=== PATIENT | male | born 1965 | race Caucasian/White ===

== ENCOUNTER → 2016-09-06 | Outpatient (CLI) | payer OTHER ==
--- NOTE | 2016-09-06 17:13 | PN ---
DATE OF SERVICE: 09/06/2016 This patient is 51 years of age. He was diagnosed having mild obstructive sleep apnea. His sleep study was completed on 06/05/2016, and the patient was diagnosed having mild LEE with an AHI of 14.3, worse during REM sleep. In fact, his disease is predominantly during REM, and his AHI during REM was as high as 57.7 and he was having significant nocturnal oxygen desaturations. Based on that, the patient was placed on CPAP therapy, and today he is coming in for a compliancy check. He has been on the treatment for the past 2 weeks. I do have limited data the past 2 weeks that has shown good compliance. The patient has used his CPAP machine 13 out of 15 days. He achieved CPAP use of more than 4 hours in 12 out of these 15 days. His average CPAP use is 5.5 hours and his leak factor is 70 L/minute. His AHI while on treatment is down to 1.2. The patient, however, tells me that he is having some difficulties with the high pressure and occasional leaks around the mask, which wakes him up from sleep. He wanted me to see if there is any possibility of lowering his CPAP pressure any further. Note that his current CPAP pressure is set at a pressure of 14 cm of water. HIS CURRENT VITALS: BP is 119/85, pulse 80, respiratory rate 16. Temperature is 97.0, saturation 97% on room air. GENERAL APPEARANCE: Calm, comfortable. HEENT: Short neck. Crowding of posterior pharynx. There is no goiter or neck masses. LUNGS: Clear to auscultation. HEART: Sounds are regular rate and rhythm. Normal S1, S2. No S3. No S4. No murmurs. ABDOMEN: Soft, nontender. No organomegaly. EXTREMITIES: No edema. No cyanosis or clubbing. IMPRESSION: 1. Symptomatic obstructive sleep apnea, mild, with a baseline AHI of 14.3, significantly worse during REM sleep. The patient is demonstrating adequate clinical response and compliance with his CPAP machine. He is having some difficulties with the high pressure and mask leaks, and he is looking into any possibility for lowering the pressure. 2. Sleep fragmentation, improved with CPAP therapy. 3. Hypertension. 4. Obesity with a body mass index of 41.9. PLAN: 1. Encourage weight loss. 2. Switch this patient to an Auto CPAP unit with a minimum pressure of 6 and a maximum pressure of 14. This will allow the CPAP machine to deliver lower pressures than the target pressure if needed. 3. Keep the patient on a Simplus full-face mask and look for alternative masks if he continues to have issues with air leak. 4. Maintain adequate sleep hygiene measures. 5. See me back here in the office in 8 weeks' time for another followup and compliancy check.
== END | disposition home or self-care (01) ==
LOC: SLEEP 14:02
PROVIDERS: ATTEND Internal Medicine Critical Care Medicine
DX: G47.33 Obstructive sleep apnea (adult) (pediatric) (principal); E66.9 Obesity, unspecified; Z68.41 Body mass index [BMI] 40.0-44.9, adult; Z99.89 Dependence on other enabling machines and devices

== ENCOUNTER → 2016-10-25 | Outpatient (CLI) | payer OTHER ==
--- NOTE | 2016-10-25 22:20 | PN ---
This is a 51-year-old male patient who was diagnosed having obstructive sleep apnea in April 2016. The patient had mild disease with an AHI of 14.3, worse during REM. AHI during REM was 57.7. The patient was placed on CPAP therapy at a pressure of 14 cm of water. During his earlier visit, the patient was having adequate clinical response and compliance; however, he was having some difficulties with the high pressure and leaks around the mask. He was requesting lowering the CPAP pressure. I did not lower the pressure. I will switch this patient to an automatic mode with a minimum pressure of 5, a maximum pressure of 14. On today's evaluation, his P90 pressure is at 7.8. He is using his CPAP for more than 4 hours at 24 out of 30 days. His average CPAP use is 5 hours per night. His leak factor is 10 L per minute and his AHI is down to 0.8. He is still seeing a good benefit from the treatment and the patient has no new complaints for now. BP is 126/66, pulse is 79, respirations 16, temperature 98.0, weight is 279. Height is 5 foot 8 inches. Saturation 96% on room air. BMI is 42.5. GENERAL APPEARANCE: Calm, comfortable. HEENT: Negative for JVD. There is no goiter or neck mass. LUNGS: Clear to auscultation. Heart sounds are regular rate and rhythm. Normal S1, S2. ABDOMEN: Soft, nontender. No organomegaly. EXTREMITIES: No edema. No cyanosis or clubbing. IMPRESSION: 1. Symptomatic obstructive sleep apnea, mild with an apnea-hypopnea index of 14.3, worse during rapid eye movement. 2. Successful continuous positive airway pressure continuous positive airway pressure therapy. 3. Hypertension. 4. Obesity. PLAN: 1. Continue AutoPAP therapy at a minimum pressure of 6 and a maximum of 14 and the treatment has been successful. 2. Encourage weight loss. 3. See me back in a year's time, earlier if needed regarding his obstructive sleep apnea. Treatment is successful for now and the patient is benefiting from the treatment.
== END | disposition home or self-care (01) ==
LOC: SLEEP 13:15
PROVIDERS: ATTEND Internal Medicine Critical Care Medicine
DX: G47.33 Obstructive sleep apnea (adult) (pediatric) (principal); E66.9 Obesity, unspecified; Z68.41 Body mass index [BMI] 40.0-44.9, adult

== ENCOUNTER 2018-05-27 14:55 | Emergency (ER) | payer OTHER ==
[2018-05-27] MEDS ORDERED: ASPIRIN 81 MG PO STA (15:14)
[2018-05-27] MEDS ORDERED: NITROGLYCERIN OINT 1 INCH/GM PACKET TOPICAL STA (15:14)
--- NOTE | 2018-05-27 15:20 | ED ---
General Adult HPI - General Chief complaint: Chest Pain Stated complaint: Chest pain Time Seen by Provider: 05/27/18 15:08 Source: patient, RN notes reviewed Mode of arrival: ambulatory Limitations: no limitations - History of Present Illness Initial comments: Patient is a pleasant 53-year-old male presenting to the emergency Department with chest discomfort. Symptoms are somewhat chronic, worse since last night. Discomfort is somewhat sharp or towards the right side and does radiate towards right arm. Patient does have some associated dyspnea but has resolved. Patient was sweaty earlier. Patient has been under increased stress recently. Patient does have a history of hypertension however is not on any medications secondary to lack of insurance. Discomfort is currently rated 2/10. - Related Data Home Medications Medication Instructions Recorded Confirmed Acetaminophen Tab [Tylenol Tab] 975 mg PO Q4H PRN 05/27/18 05/27/18 Previous Rx's Medication Instructions Recorded Atenolol 25 mg PO DAILY #7 tablet 05/27/18 Allergies Allergy/AdvReac Type Severity Reaction Status Date / Time No Known Allergies Allergy Verified 05/27/18 15:15 Review of Systems ROS Statement: Those systems with pertinent positive or pertinent negative responses have been documented in the HPI. ROS Other: All systems not noted in ROS Statement are negative. Constitutional: Denies: fever Eyes: Denies: eye pain ENT: Denies: ear pain Respiratory: Reports: dyspnea. Denies: cough Cardiovascular: Reports: chest pain Endocrine: Denies: fatigue Gastrointestinal: Denies: abdominal pain Genitourinary: Denies: dysuria Musculoskeletal: Denies: back pain Skin: Denies: rash Neurological: Denies: headache Psychiatric: Reports: anxiety Past Medical History Past Medical History: Hypertension Additional Past Medical History / Comment(s): CHRONIC BRONCHITIS, STATES TESTING SCHEDULED FOR SLEEP APNEA, HX OF KIDNEY STONE., BLOOD IN STOOL. History of Any Multi-Drug Resistant Organisms: None Reported Past Surgical History: Appendectomy, Tonsillectomy Additional Past Surgical History / Comment(s): KIDNEY STONE REMOVED. Past Anesthesia/Blood Transfusion Reactions: No Reported Reaction Past Psychological History: Depression Smoking Status: Never smoker Past Alcohol Use History: None Reported Past Drug Use History: None Reported - Past Family History Mother Family Medical History: Deep Vein Thrombosis (DVT) General Exam Limitations: no limitations General appearance: alert, in no apparent distress Head exam: Present: atraumatic Eye exam: Present: normal appearance ENT exam: Present: normal oropharynx Neck exam: Present: normal inspection Respiratory exam: Present: normal lung sounds bilaterally. Absent: chest wall tenderness Cardiovascular Exam: Present: regular rate, normal rhythm Expanded Peripheral pulses: 2+: Radial (R), Radial (L), Posterior Tibialis (R), Posterior Tibialis (L) GI/Abdominal exam: Present: soft. Absent: tenderness Extremities exam: Present: normal inspection. Absent: pedal edema, calf tenderness Neurological exam: Present: alert Psychiatric exam: Present: normal affect, normal mood Skin exam: Present: normal color Course Vital Signs 05/27/18 05/27/18 05/27/18 14:58 15:07 15:10 Temperature 98.4 F Pulse Rate 112 H 101 H Respiratory 16 18 Rate Blood Pressure 180/120 189/111 O2 Sat by Pulse 95 94 L 96 Oximetry 05/27/18 05/27/18 05/27/18 15:20 15:30 15:40 Temperature Pulse Rate 104 H 98 Respiratory 18 18 Rate Blood Pressure 190/125 190/125 190/125 O2 Sat by Pulse 92 L 94 L Oximetry 05/27/18 05/27/18 15:50 16:00 Temperature Pulse Rate 95 94 Respiratory 18 Rate Blood Pressure 190/125 190/125 O2 Sat by Pulse 95 93 L Oximetry EKG Findings - EKG Comments: EKG Findings:: Sinus tachycardia 106. MI 176. QRS 104. QT 368. QTC 488. Left axis. Incomplete right bundle-branch block. LVH criteria. Nonspecific T waves. Medical Decision Making - Medical Decision Making Patient reevaluated and resting comfortably in bed. Patient states symptoms have resolved. Blood pressure remained somewhat elevated. Patient is updated regarding concerns for symptoms and continued elevated blood pressure. Patient is advised to stay in the hospital for further evaluation and treatment. Patient is made aware of limitations of tests in the emergency department. Patient is made aware that heart attack and other cause of symptoms has not been ruled out at this time. Patient is also made aware that he could be at risk for heart attack in the very near future. Patient refuses to stay secondary to no insurance at this time. Patient does demonstrate medical decision making. Family is present. Patient will leave AGAINST MEDICAL ADVICE. Patient is agreeable to follow-up. Patient will be provided prescription secondary to high blood pressure and recommended close follow-up. - Lab Data Result diagrams: 05/27/18 15:26 05/27/18 15:26 Lab Results 05/27/18 05/27/18 05/27/18 Range/Units 15:26 15:26 15:26 WBC 11.3 H (3.8-10.6) k/uL RBC 4.91 (4.30-5.90) m/uL Hgb 14.6 (13.0-17.5) gm/dL Hct 42.9 (39.0-53.0) % MCV 87.4 (80.0-100.0) fL MCH 29.7 (25.0-35.0) pg MCHC 34.0 (31.0-37.0) g/dL RDW 12.6 (11.5-15.5) % Plt Count 286 (150-450) k/uL Neutrophils % 72 % Lymphocytes % 17 % Monocytes % 7 % Eosinophils % 2 % Basophils % 0 % Neutrophils # 8.1 H (1.3-7.7) k/uL Lymphocytes # 1.9 (1.0-4.8) k/uL Monocytes # 0.8 (0-1.0) k/uL Eosinophils # 0.2 (0-0.7) k/uL Basophils # 0.0 (0-0.2) k/uL PT (9.0-12.0) sec INR (<1.2) APTT (22.0-30.0) sec D-Dimer (<0.60) mg/L FEU Sodium 139 (137-145) mmol/L Potassium 3.7 (3.5-5.1) mmol/L Chloride 103 (98-107) mmol/L Carbon Dioxide 27 (22-30) mmol/L Anion Gap 9 mmol/L BUN 22 H (9-20) mg/dL Creatinine 1.32 H (0.66-1.25) mg/dL Est GFR (CKD-EPI)AfAm 72 (>60 ml/min/1.73 sqM) Est GFR (CKD-EPI)NonAf 62 (>60 ml/min/1.73 sqM) Glucose 121 H (74-99) mg/dL Calcium 9.5 (8.4-10.2) mg/dL Magnesium 2.2 (1.6-2.3) mg/dL Total Bilirubin 0.7 (0.2-1.3) mg/dL AST 33 (17-59) U/L ALT 48 (21-72) U/L Alkaline Phosphatase 93 (38-126) U/L Total Creatine Kinase 210 H (55-170) U/L CK-MB (CK-2) 0.9 (0.0-2.4) ng/mL CK-MB (CK-2) Rel Index 0.4 Troponin I <0.012 (0.000-0.034) ng/mL Total Protein 7.1 (6.3-8.2) g/dL Albumin 4.3 (3.5-5.0) g/dL 05/27/18 Range/Units 15:26 WBC (3.8-10.6) k/uL RBC (4.30-5.90) m/uL Hgb (13.0-17.5) gm/dL Hct (39.0-53.0) % MCV (80.0-100.0) fL MCH (25.0-35.0) pg MCHC (31.0-37.0) g/dL RDW (11.5-15.5) % Plt Count (150-450) k/uL Neutrophils % % Lymphocytes % % Monocytes % % Eosinophils % % Basophils % % Neutrophils # (1.3-7.7) k/uL Lymphocytes # (1.0-4.8) k/uL Monocytes # (0-1.0) k/uL Eosinophils # (0-0.7) k/uL Basophils # (0-0.2) k/uL PT 9.9 (9.0-12.0) sec INR 0.9 (<1.2) APTT 23.2 (22.0-30.0) sec D-Dimer 0.42 (<0.60) mg/L FEU Sodium (137-145) mmol/L Potassium (3.5-5.1) mmol/L Chloride (98-107) mmol/L Carbon Dioxide (22-30) mmol/L Anion Gap mmol/L BUN (9-20) mg/dL Creatinine (0.66-1.25) mg/dL Est GFR (CKD-EPI)AfAm (>60 ml/min/1.73 sqM) Est GFR (CKD-EPI)NonAf (>60 ml/min/1.73 sqM) Glucose (74-99) mg/dL Calcium (8.4-10.2) mg/dL Magnesium (1.6-2.3) mg/dL Total Bilirubin (0.2-1.3) mg/dL AST (17-59) U/L ALT (21-72) U/L Alkaline Phosphatase (38-126) U/L Total Creatine Kinase (55-170) U/L CK-MB (CK-2) (0.0-2.4) ng/mL CK-MB (CK-2) Rel Index Troponin I (0.000-0.034) ng/mL Total Protein (6.3-8.2) g/dL Albumin (3.5-5.0) g/dL - Radiology Data Radiology results: image reviewed (Chest x-ray shows no acute process) Disposition Clinical Impression: Chest pain, Hypertension Disposition: Left Against Medical Advice Instructions: Chest Pain (ED), Hypertension (ED) Additional Instructions: Please follow-up with primary care physician and cardiology in the next day or 2 for recheck. Return to emergency department for desire for further evaluation , increased pain, worsening symptoms, uncontrolled blood pressure, difficulty breathing, or other concerns. Aspirin daily until further advised by primary care physician or associate material handler. You are leaving AGAINST MEDICAL ADVICE. Prescriptions: Atenolol 25 mg PO DAILY #7 tablet Is patient prescribed a controlled substance at d/c from ED?: No Referrals: Jadyn Keene DO [Primary Care Provider] - 1-2 days Time of Disposition: 16:17
[2018-05-27 15:35] LABS: Basophils % (A) 0 %; Eosinophils # (A) 0.2 k/uL (0-0.7); Eosinophils % (A) 2 %; HCT 42.9 % (39.0-53.0); HGB 14.6 gm/dL (13.0-17.5); Lymphocytes # (A) 1.9 k/uL (1.0-4.8); Lymphocytes % (A) 17 %; MCH 29.7 pg (25.0-35.0); MCV 87.4 fL (80.0-100.0); Mean Platelet Volume 7.1; Monocytes # (A) 0.8 k/uL (0-1.0); Monocytes % (A) 7 %; Neutrophils # (A) 8.1 k/uL (1.3-7.7); Neutrophils % (A) 72 %; Platelet Count 286 k/uL (150-450); RBC 4.91 m/uL (4.30-5.90); RDW 12.6 % (11.5-15.5); WBC 11.3 k/uL (3.8-10.6)
[2018-05-27 15:45] LABS: Albumin 4.3 g/dL (3.5-5.0); Calcium 9.5 mg/dL (8.4-10.2); Magnesium 2.2 mg/dL (1.6-2.3); Potassium 3.7 mmol/L (3.5-5.1); Total Bilirubin 0.7 mg/dL (0.2-1.3); Total Protein 7.1 g/dL (6.3-8.2)
--- NOTE | 2018-05-27 15:46 | XR ---
EXAMINATION TYPE: XR chest 2V DATE OF EXAM: 05/27/2018 COMPARISON: NONE HISTORY: Dysrhythmia. Chest pain TECHNIQUE: Frontal and lateral views of the chest are obtained. FINDINGS: Heart and mediastinum are normal. Lungs are clear. Diaphragm is normal. There are chest le ads. Bony thorax is intact. IMPRESSION: Normal chest. No change.
[2018-05-27 15:48] LABS: Creatine Kinase 210 U/L (55-170)
[2018-05-27 16:00] LABS: D-Dimer 0.42 mg/L FEU (<0.60); INR 0.9 (<1.2); Partial Thromboplastin Time 23.2 sec (22.0-30.0); Prothrombin Time 9.9 sec (9.0-12.0)
[2018-05-27 16:01] LABS: Creatine Kinase MB 0.9 ng/mL (0.0-2.4); Troponin I <0.012 ng/mL (0.000-0.034)
[2018-05-27 16:03] VITALS: PULSE 94
[2018-05-27] MEDS ORDERED: ATENOLOL 25 MG TAB PO STA (16:13)
[2018-05-27 16:53] VITALS: BP 145/92; RESP 16; TEMP 98.2
== END 2018-05-27 16:55 | disposition left against medical advice (07) ==
LOC: EC 14:55
DX: I10 Essential (primary) hypertension (principal); R07.89 Other chest pain
CPT/HCPCS: 36415; 71046; 80053; 82550; 82553; 83735; 84484; 85025; 85379; 85610; 85730; 93005; 99285

== ENCOUNTER 2021-01-03 10:08 | Inpatient (IN) | payer OTHER ==
[2021-01-03] MEDS ORDERED: ASPIRIN 81 MG PO STA (10:21)
[2021-01-03 10:32] LABS: Basophils % (A) 0 %; Eosinophils # (A) 0.2 k/uL (0-0.7); Eosinophils % (A) 2 %; HCT 43.9 % (39.0-53.0); HGB 15.7 gm/dL (13.0-17.5); Lymphocytes # (A) 1.8 k/uL (1.0-4.8); Lymphocytes % (A) 19 %; MCH 31.3 pg (25.0-35.0); MCHC 35.7 g/dL (31.0-37.0); MCV 87.6 fL (80.0-100.0); Mean Platelet Volume 7.2; Monocytes # (A) 0.8 k/uL (0-1.0); Monocytes % (A) 8 %; Neutrophils # (A) 6.8 k/uL (1.3-7.7); Neutrophils % (A) 69 %; Platelet Count 247 k/uL (150-450); RBC 5.01 m/uL (4.30-5.90); RDW 11.9 % (11.5-15.5); WBC 9.8 k/uL (3.8-10.6)
--- NOTE | 2021-01-03 10:34 | ED ---
Chest Pain HPI - General Chief Complaint: Chest Pain Stated Complaint: Chest Pain Time Seen by Provider: 01/03/21 10:17 Source: patient, RN notes reviewed Mode of arrival: wheelchair Limitations: no limitations - History of Present Illness Initial Comments: 55-year-old male presents to the emergency Department with chief complaint chest pain. Patient states has been ongoing since , progressively worsening. He feels short of breath feels it's heart is racing. He was recently diagnosed as a type II diabetic started on metformin. Patient has no prior cardiac disease other hypertension. Patient denies any fevers or chills denies a cough or cold like symptoms. - Related Data Home Medications Medication Instructions Recorded Confirmed Gabapentin [Neurontin] 100 mg PO HS 01/03/21 01/03/21 Lisinopril-Hctz 20-25 mg 1 tab PO DAILY 01/03/21 01/03/21 [Zestoretic 20-25] Metoprolol Tartrate [Lopressor] 100 mg PO DAILY 01/03/21 01/03/21 Montelukast [Singulair] 10 mg PO HS 01/03/21 01/03/21 Omeprazole 20 mg PO DAILY 01/03/21 01/03/21 Pantoprazole Sodium [Protonix] 40 mg PO DAILY 01/03/21 01/03/21 Potassium Chloride ER [K-Dur 10] 10 meq PO DAILY 01/03/21 01/03/21 Tamsulosin [Flomax] 0.4 mg PO BID 01/03/21 01/03/21 amLODIPine [Norvasc] 10 mg PO DAILY 01/03/21 01/03/21 buPROPion HCL [Wellbutrin SR] 150 mg PO Q12H 01/03/21 01/03/21 metFORMIN HCL [Glucophage] 500 mg PO BID 01/03/21 01/03/21 Allergies Allergy/AdvReac Type Severity Reaction Status Date / Time No Known Allergies Allergy Verified 01/03/21 11:18 Review of Systems ROS Statement: Those systems with pertinent positive or pertinent negative responses have been documented in the HPI. ROS Other: All systems not noted in ROS Statement are negative. EKG Findings - EKG Comments: EKG Findings:: EKG upon at 10:16 sinus tachycardia rate of 128 AK 156 QRS 94 QT/QTC 320/452 Past Medical History Past Medical History: Hypertension Additional Past Medical History / Comment(s): CHRONIC BRONCHITIS, STATES TESTING SCHEDULED FOR SLEEP APNEA, HX OF KIDNEY STONE., BLOOD IN STOOL. History of Any Multi-Drug Resistant Organisms: None Reported Past Surgical History: Appendectomy, Tonsillectomy Additional Past Surgical History / Comment(s): KIDNEY STONE REMOVED. Past Anesthesia/Blood Transfusion Reactions: No Reported Reaction Past Psychological History: Depression Smoking Status: Never smoker Past Alcohol Use History: None Reported Past Drug Use History: None Reported - Past Family History Mother Family Medical History: Deep Vein Thrombosis (DVT) General Exam Limitations: no limitations General appearance: alert, in no apparent distress Head exam: Present: atraumatic, normocephalic, normal inspection Eye exam: Present: normal appearance, PERRL, EOMI. Absent: scleral icterus, conjunctival injection, periorbital swelling ENT exam: Present: normal exam, normal oropharynx, mucous membranes moist Neck exam: Present: normal inspection, full ROM. Absent: tenderness, meningismus, lymphadenopathy Respiratory exam: Present: normal lung sounds bilaterally. Absent: respiratory distress, wheezes, rales, rhonchi, stridor Cardiovascular Exam: Present: normal rhythm, tachycardia, normal heart sounds. Absent: systolic murmur, diastolic murmur, rubs, gallop, clicks GI/Abdominal exam: Present: soft, normal bowel sounds. Absent: distended, tenderness, guarding, rebound, rigid Course Vital Signs 01/03/21 01/03/21 10:09 11:06 Temperature 98.4 F Pulse Rate 137 H 110 H Respiratory 18 22 Rate Blood Pressure 122/76 130/83 O2 Sat by Pulse 96 95 Oximetry [facility] Patient's workup is negative this time. Patient be admitted for cardiac rule out. Disposition Clinical Impression: Chest pain Disposition: ADMITTED IP TO THIS [facility] Referrals: Jadyn Keene DO [Primary Care Provider] - 1-2 days
[2021-01-03 10:45] LABS: ALT 27 U/L (4-49); AST 25 U/L (17-59); African American GFR (CKD) >90 (>60 ml/min/1.73 sqM); Albumin 3.6 g/dL (3.5-5.0); Alkaline Phosphatase 104 U/L (38-126); Anion Gap 7 mmol/L; Blood Urea Nitrogen 9 mg/dL (9-20); Calcium 8.8 mg/dL (8.4-10.2); Carbon Dioxide 26 mmol/L (22-30); Chloride 102 mmol/L (98-107); Glucose 236 mg/dL (74-99); Lipase 48 U/L (23-300); Magnesium 1.7 mg/dL (1.6-2.3); Non-African American GFR(CKD) >90 (>60 ml/min/1.73 sqM); Potassium 3.4 mmol/L (3.5-5.1); Sodium 135 mmol/L (137-145); Total Bilirubin 0.7 mg/dL (0.2-1.3); Total Protein 5.8 g/dL (6.3-8.2)
--- NOTE | 2021-01-03 10:49 | XR ---
EXAMINATION TYPE: XR chest 2V DATE OF EXAM: 01/03/2021 COMPARISON: 05/27/2018 INDICATION: Chest pain TECHNIQUE: Frontal and lateral views of the chest are obtained. FINDINGS: The heart size is normal. The pulmonary vasculature is normal. The lungs are clear. IMPRESSION: 1. No acute pulmonary process.
[2021-01-03 11:01] LABS: D-Dimer 0.32 mg/L FEU (<0.60); INR 0.9 (<1.2); Partial Thromboplastin Time 22.1 sec (22.0-30.0); Prothrombin Time 10.1 sec (9.0-12.0)
[2021-01-03] MEDS ORDERED: HEPARIN SODIUM 1,000 UN/ML (10ML VL) IV ONE (11:58)
[2021-01-03] MEDS ORDERED: NITROGLYCERIN SL TABS 0.4 MG TAB SUBLINGUAL PRN (11:58)
[2021-01-03] MEDS ORDERED: HEPARIN SOD,PORK IN 0.45% NACL 25,000 UNIT in 0.45% NACL 1 250ML.BAG IV SCH (12:00)
[2021-01-03] MEDS: buPROPion SR 150 MG TABLET.ER PO SCH (12:14)
[2021-01-03] MEDS ORDERED: TEMAZEPAM 15 MG CAP PO PRN (15:54)
[2021-01-03] MEDS ORDERED: ALPRAZolam 0.25 MG TAB PO PRN (15:54)
[2021-01-03 17:07] LABS: Glucose,Whole Blood 211 mg/dL (75-99)
--- NOTE | 2021-01-03 18:45 | HP ---
HISTORY AND PHYSICAL I am covering for Dr. Keene. DATE OF SERVICE: 01/03/2021 CHIEF COMPLAINT: Chest pain. This is a 55-year-old gentleman with a past medical history of diabetes, hypertension, history of chronic bronchitis being followed Dr. Keene in the outpatient setting, had a stress test about 2 years ago. 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 The patient is admitted with complaints of a feeling of heart racing and feeling of some chest fullness and the patient came to [facility] and was admitted for evaluation and treatment. There is no history of fever, rigors, chills. The patient's also reported that sometimes when the patient is working, the patient almost get almost like a presyncopal episode with ashen kurtz coloration, which recovers after some rest. There is no history of fever, rigors, chills at this time. PAST MEDICAL HISTORY: History of diabetes, hypertension, history of chronic bronchitis. MEDICATIONS: Home medications Glucophage, Wellbutrin, Norvasc, Flomax, K-Dur, Protonix, ( ), Singulair, Lopressor, Zestoretic, Neurontin. ALLERGIES: None. FAMILY HISTORY: History of DVT in the family. History of coronary artery disease currently in mother, in the 50s. SOCIAL HISTORY: No history of smoking. No history of alcohol. No history of drug abuse. REVIEW OF SYSTEMS: ENT: No diminished vision. CARDIOVASCULAR: As mentioned earlier. GI: As mentioned. : No dysuria. NERVOUS SYSTEM: No numbness, weakness. ALLERGY: None. HEMATOLOGY/ONCOLOGY: Negative. ENDOCRINE: No history of diabetes or hypothyroidism. CONSTITUTIONAL: As mentioned earlier. DERMATOLOGY: Negative. RHEUMATOLOGY: Negative, PSYCHIATRY: As mentioned earlier. PHYSICAL EXAMINATION: Alert, oriented x3. Pulse 98, blood pressure 101/62, respirations 16, temperature 98.2, pulse ox 98% on 3 L. HEENT: Conjunctivae normal. NECK: No JVD. CARDIAC: Murmur. RESPIRATION: Breath sounds diminished at the bases. No rhonchi. No crackles. ABDOMEN: Soft, obese, nontender. No mass palpable . LEGS: No edema, no swelling. NERVOUS SYSTEM: Higher functions as mentioned earlier. Moves all 4 limbs. No focal motor or sensory deficits. LYMPH NODES: No lymph nodes. SKIN: No rash. JOINTS: No active deforming arthropathy. LABS: CBC within normal limits. Sodium 134, potassium 3.4, and glucose 236. ASSESSMENT: 1. Chest pain for evaluation possible coronary disease. 2. Rule out cardiac arrhythmia. 3. Hyponatremia. 4. Hypokalemia. 5. Sinus tachycardia with some ST-T changes. 6. Diabetes mellitus, type 2. 7. Hypertension. 8. History of chronic bronchitis. 9. Appendectomy. 10.Tonsillectomy. 11.History of nephrolithiasis. 12.Depression. 13.Obesity with body mass of 42.1. RECOMMENDATIONS AND DISCUSSION: This 55-year-old gentleman who presented with multiple medical problems. Monitor the patient closely. Rule out myocardial infarction. The EKG shows sinus tachycardia. We will continue to monitor. Possible stress test versus cardiac cath per Cardiology. We will continue to monitor. Antiplatelet agents, beta blockers. Guarded prognosis. Further recommendations to follow. Dr. Keene will follow tomorrow. MMJODIEL / LILLIANAN: [id number] /
[2021-01-03 20:05] LABS: Glucose,Whole Blood 256 mg/dL (75-99)
[2021-01-03] MEDS: TAMSULOSIN 0.4 MG CAP.ER.24H PO SCH (20:56)
[2021-01-03] MEDS: GABAPENTIN 100 MG CAP PO SCH (20:56)
[2021-01-03] MEDS: MONTELUKAST 10 MG TAB PO SCH (20:56)
[2021-01-03] MEDS: metFORMIN 500 MG TAB PO SCH (20:56)
[2021-01-04] MEDS: buPROPion SR 150 MG TABLET.ER PO SCH ×2 (00:23→11:58)
[2021-01-04] MEDS ORDERED: HEPARIN SODIUM 1,000 UN/ML (10ML VL) IV PRN (02:22)
[2021-01-04] MEDS: metFORMIN 500 MG TAB PO SCH ×2 (07:04→20:30)
[2021-01-04] MEDS: TAMSULOSIN 0.4 MG CAP.ER.24H PO SCH ×2 (07:24→20:30)
[2021-01-04] MEDS: PANTOPRAZOLE 40 MG TABLET PO SCH (07:24)
[2021-01-04] MEDS: POTASSIUM CHLORIDE ER 10 MEQ TAB.ER.PRT PO SCH (07:24)
[2021-01-04] MEDS: LISINOPRIL-HCTZ 20-25 MG 1 EACH TAB PO SCH (07:25)
[2021-01-04 07:28] LABS: Glucose,Whole Blood 202 mg/dL (75-99)
[2021-01-04] MEDS ORDERED: AMINOPHYLLINE 500 MG/20 ML VIAL IV PRN (08:43)
[2021-01-04] MEDS ORDERED: CAFFEINE CITRATE 60 MG/3 ML VIAL IV PRN (08:43)
[2021-01-04] MEDS ORDERED: REGADENOSON 0.4 MG/5 ML SYRINGE IV PRN (08:43)
[2021-01-04] MEDS ORDERED: amLODIPine 10 MG TAB PO SCH (09:00)
[2021-01-04] MEDS ORDERED: METOPROLOL TARTRATE 50 MG TAB PO SCH (09:00)
[2021-01-04] MEDS ORDERED: ASPIRIN 325 MG TAB PO SCH (09:00)
[2021-01-04 09:21] LABS: African American GFR (CKD) >90 (>60 ml/min/1.73 sqM); Anion Gap 2 mmol/L; Blood Urea Nitrogen 11 mg/dL (9-20); Calcium 8.7 mg/dL (8.4-10.2); Carbon Dioxide 33 mmol/L (22-30); Chloride 102 mmol/L (98-107); Glucose 185 mg/dL (74-99); Non-African American GFR(CKD) >90 (>60 ml/min/1.73 sqM); Potassium 3.9 mmol/L (3.5-5.1); Sodium 137 mmol/L (137-145)
--- NOTE | 2021-01-04 09:28 | P.CRDCN ---
History of Present Illness History of present illness: HISTORY OF PRESENTING ILLNESS This is a pleasant 55-year-old male past medical history significant for recently diagnosed diabetes mellitus, hypertension, chronic bronchitis and morbid obesity. He denies prior history of coronary artery disease and does not follow in the office with a draw hand. We have been asked to see in consultation for chest pain. He states for the previous 2 weeks he has been experiencing a discomfort in the left shoulder and left torso. The symptoms were mostly constant with no specific aggravating or alleviating factor. Then on he started experiencing palpitations. He states his heart would begin to race rapidly with no specific exacerbating factor. It would come out of nowhere. It was associated with diaphoresis, dizziness and some vision changes. His chest pain at that time did not worsen. He denies any associated shortness of breath. He was recently started on metformin for newly diagnosed diabetes mellitus. DIAGNOSTICS EKG reveals sinus tachycardia heart rate of [address] abnormalities. 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 Chest xray negative for an acute cardiopulmonary process. Laboratory reviewed, CBC unremarkable, d-dimer 0.32, cardiac enzymes negative 3, sodium 137, potassium 3.9, creatinine 0.61. Current cardiac medications include lisinopril/hydrochlorothiazide 20/25 mg daily, Lopressor 100 mg daily, amlodipine 10 mg daily. Most recent echocardiogram obtained 2016 revealed preserved LV systolic function with ejection fraction 60-65%, mild MR and mild TR noted. Most recent stress test performed in 2016 was a Cardiolite stress test that was negative for stress-induced cardiac ischemia. REVIEW OF SYSTEMS At the time of my exam: CONSTITUTIONAL: Denies fever or chills. CARDIOVASCULAR: Denies chest pain, shortness of breath, orthopnea, PND or palpitations. RESPIRATORY: Denies cough. GASTROINTESTINAL: Denies abdominal pain, diarrhea, constipation, nausea or vomiting. MUSCULOSKELETAL: Denies myalgias. NEUROLOGIC: Denies numbness, tingling, headacbe or weakness. ENDOCRINE: Denies fatigue, weight change, polydipsia or polyurina. GENITOURINARY: Denies burning, hematuria or urgency with micturation. HEMATOLOGIC: Denies history of anemia or bleeding. PHYSICAL EXAMINATION Blood pressure 114/68 heart rate 78 afebrile and maintaining oxygen saturation on nasal cannula. CONSTITUTIONAL: No apparent distress. Obese. HEENT: Head is normocephalic. Pupils are equal, round. Sclerae anicteric. Mucous membranes of the mouth are moist. No JVD. No carotid bruit. CHEST EXAMINATION: Lungs are clear to auscultation. No chest wall tenderness is noted on palpation or with deep breathing. HEART EXAMINATION: Regular rate and rhythm. S1, S2 heard. No murmurs, gallops or rub. ABDOMEN: Soft, nontender. Positive bowel sounds. EXTREMITIES: 2+ peripheral pulses, no lower extremity edema and no calf tenderness. NEUROLOGIC EXAMINATION: Patient is awake, alert and oriented x3. ASSESSMENT Chest pain Palpitations Diabetes mellitus Hypertension Morbid obesity, BMI 42 Chronic lumbar back pain PLAN An acute coronary event has been ruled out. There is no evidence for an acute arrhythmia noted on telemetry tracings. Check TSH. Initiate atorvastatin 40 mg daily secondary to recent diagnosis of diabetes mellitus. Obtain 2-D echocardiogram and Doppler study to assess cardiac structure and function. Perform Lexiscan stress test to assess for stress-induced cardiac ischemia. Discontinue amlodipine and adjust beta sharri to Toprol-XL 200 mg daily rather than short acting. Thank you kindly for this consultation. Nurse Practitioner note has been reviewed, I agree with a documented findings and plan of care. Patient was seen and examined. Past Medical History Past Medical History: Diabetes Mellitus, Hypertension Additional Past Medical History / Comment(s): CHRONIC BRONCHITIS, STATES TESTING SCHEDULED FOR SLEEP APNEA, HX OF KIDNEY STONE., BLOOD IN STOOL. History of Any Multi-Drug Resistant Organisms: None Reported Past Surgical History: Appendectomy, Tonsillectomy Additional Past Surgical History / Comment(s): KIDNEY STONE REMOVED. Past Anesthesia/Blood Transfusion Reactions: No Reported Reaction Past Psychological History: Depression Smoking Status: Never smoker Past Alcohol Use History: None Reported Past Drug Use History: None Reported - Past Family History Mother Family Medical History: Deep Vein Thrombosis (DVT) Medications and Allergies Home Medications Medication Instructions Recorded Confirmed Type Gabapentin [Neurontin] 100 mg PO HS 01/03/21 01/03/21 History Lisinopril-Hctz 20-25 mg 1 tab PO DAILY 01/03/21 01/03/21 History [Zestoretic 20-25] Metoprolol Tartrate [Lopressor] 100 mg PO DAILY 01/03/21 01/03/21 History Montelukast [Singulair] 10 mg PO HS 01/03/21 01/03/21 History Omeprazole 20 mg PO DAILY 01/03/21 01/03/21 History Pantoprazole Sodium [Protonix] 40 mg PO DAILY 01/03/21 01/03/21 History Potassium Chloride ER [K-Dur 10] 10 meq PO DAILY 01/03/21 01/03/21 History Tamsulosin [Flomax] 0.4 mg PO BID 01/03/21 01/03/21 History amLODIPine [Norvasc] 10 mg PO DAILY 01/03/21 01/03/21 History buPROPion HCL [Wellbutrin SR] 150 mg PO Q12H 01/03/21 01/03/21 History metFORMIN HCL [Glucophage] 500 mg PO BID 01/03/21 01/03/21 History Allergies Allergy/AdvReac Type Severity Reaction Status Date / Time No Known Allergies Allergy Verified 01/03/21 11:18 Physical Exam Vitals: Vital Signs Temp Pulse Pulse Resp BP BP Pulse Ox 01/04/21 08:00 78 18 01/04/21 07:00 98.5 F 78 18 114/68 97 01/04/21 01:22 98.0 F 84 14 110/67 96 01/03/21 19:20 98.1 F 102 H 16 110/71 97 01/03/21 15:00 98.3 F 98 16 101/66 98 01/03/21 14:00 98 16 01/03/21 12:28 90 18 142/85 96 01/03/21 12:12 95 20 143/85 96 01/03/21 11:06 110 H 22 130/83 95 01/03/21 10:09 98.4 F 137 H 18 122/76 96 Intake and Output 01/03/21 01/04/21 01/04/21 22:59 06:59 14:59 Intake Total 143.986 Balance 143.986 Intake: Intake, IV Titration 143.986 Amount Heparin Sod,Pork in 0.45% 143.986 NaCl 25,000 unit In 0.45 % NaCl 1 250ml.bag @ 7. 735 UNITS/KG/HR 9.999 mls /hr IV .Q24H [facility] Rx#: [id number] Other: Voiding Method Toilet Toilet Toilet # Voids 1 1 Results 01/03/21 10:24 01/03/21 10:24 Cardiac Enzymes 01/03/21 01/03/21 01/03/21 Range/Units 10:24 10:24 14:16 AST 25 (17-59) U/L Troponin I <0.012 <0.012 (0.000-0.034) ng/mL 01/03/21 Range/Units 19:38 AST (17-59) U/L Troponin I <0.012 (0.000-0.034) ng/mL Coagulation 01/03/21 01/04/21 Range/Units 10:24 01:17 PT 10.1 (9.0-12.0) sec APTT 22.1 22.8 (22.0-30.0) sec CBC 01/03/21 Range/Units 10:24 WBC 9.8 (3.8-10.6) k/uL RBC 5.01 (4.30-5.90) m/uL Hgb 15.7 (13.0-17.5) gm/dL Hct 43.9 (39.0-53.0) % Plt Count 247 (150-450) k/uL Comprehensive Metabolic Panel 01/03/21 Range/Units 10:24 Sodium 135 L (137-145) mmol/L Potassium 3.4 L (3.5-5.1) mmol/L Chloride 102 (98-107) mmol/L Carbon Dioxide 26 (22-30) mmol/L BUN 9 (9-20) mg/dL Creatinine 0.59 L (0.66-1.25) mg/dL Glucose 236 H (74-99) mg/dL Calcium 8.8 (8.4-10.2) mg/dL AST 25 (17-59) U/L ALT 27 (4-49) U/L Alkaline Phosphatase 104 (38-126) U/L Total Protein 5.8 L (6.3-8.2) g/dL Albumin 3.6 (3.5-5.0) g/dL Current Medications Generic Name Dose Route Start Last Admin Trade Name Freq PRN Reason Stop Dose Admin Alprazolam 0.25 mg 01/03/21 15:54 Alprazolam 0.25 Mg Tab PO TID PRN Anxiety Amlodipine Besylate 10 mg 01/04/21 09:00 01/04/21 07:24 Amlodipine 10 Mg Tab PO 10 mg DAILY FREDY Administration Aspirin 325 mg 01/04/21 09:00 01/04/21 07:24 Aspirin 325 Mg Tab PO 325 mg DAILY FREDY Administration Bupropion HCl 150 mg 01/03/21 12:00 01/04/21 00:23 Bupropion Sr 150 Mg Tablet.Er PO 150 mg Q12H FREDY Administration Gabapentin 100 mg 01/03/21 21:00 01/03/21 20:56 Gabapentin 100 Mg Cap PO 100 mg HS FREDY Administration Lisinopril/HCTZ 1 each 01/04/21 09:00 01/04/21 07:25 Lisinopril-Hctz 20-25 Mg 1 Each Tab PO 1 each DAILY FREDY Administration Heparin Sodium (Porcine) 0 unit 01/04/21 02:22 01/04/21 02:35 Heparin Sodium 1,000 Un/Ml (10ml Vl) IV 6,463.7 unit PER PROTOCOL PRN Administration Low PTT Protocol Heparin Sodium/Sodium Chloride 250 mls @ 9.999 mls/hr 01/03/21 12:00 01/04/21 02:34 25,000 unit/ Sodium Chloride IV 10.735 units/kg/hr .Q24H FREDY 13.878 mls/hr Titration Protocol 7.735 UNITS/KG/HR Metformin HCl 500 mg 01/03/21 21:00 01/04/21 07:04 Metformin 500 Mg Tab PO Not Given BID FREDY Metoprolol Tartrate 100 mg 01/04/21 09:00 01/04/21 07:04 Metoprolol Tartrate 50 Mg Tab PO Not Given DAILY FREDY Montelukast Sodium 10 mg 01/03/21 21:00 01/03/21 20:56 Montelukast 10 Mg Tab PO 10 mg HS FREDY Administration Nitroglycerin 0.4 mg 01/03/21 11:58 Nitroglycerin Sl Tabs 0.4 Mg Tab SUBLINGUAL Q5M PRN Chest Pain Pantoprazole Sodium 40 mg 01/04/21 07:30 01/04/21 07:24 Pantoprazole 40 Mg Tablet PO 40 mg DAILY@0730 FREDY Administration Potassium Chloride 10 meq 01/04/21 09:00 01/04/21 07:24 Potassium Chloride Er 10 Meq Tab.Er.Prt PO 10 meq DAILY FREDY Administration Tamsulosin HCl 0.4 mg 01/03/21 21:00 01/04/21 07:24 Tamsulosin 0.4 Mg Cap.Er.24h PO 0.4 mg BID FREDY Administration Temazepam 15 mg 01/03/21 15:54 Temazepam 15 Mg Cap PO HS PRN Insomnia Intake and Output 01/03/21 01/04/21 01/04/21 22:59 06:59 14:59 Intake Total 143.986 Balance 143.986 Intake: Intake, IV Titration 143.986 Amount Heparin Sod,Pork in 0.45% 143.986 NaCl 25,000 unit In 0.45 % NaCl 1 250ml.bag @ 7. 735 UNITS/KG/HR 9.999 mls /hr IV .Q24H [facility] Rx#: [id number] Other: Voiding Method Toilet Toilet Toilet # Voids 1 1 01/03/21 10:24 01/03/21 10:24
[2021-01-04] MEDS: METOPROLOL SUCCINATE (ER) 100 MG TAB.ER.24H PO SCH (10:45)
--- NOTE | 2021-01-04 11:14 | ECHOF ---
Referral Reason:chest pain MEASUREMENTS -------- HEIGHT: 175.3 cm WEIGHT: 129.3 kg BP: 114/68 RVIDd: 4.5 cm (< 3.3) IVSd: 1.5 cm (0.6 - 1.1) LVIDd: 4.9 cm (3.9 - 5.3) LVPWd: 1.2 cm (0.6 - 1.1) IVSs: 1.9 cm LVIDs: 3.3 cm LVPWs: 1.6 cm LAESV Index (A-L): 28.84 ml/m Ao Diam: 4.4 cm (2.0 - 3.7) AV Cusp: 2.4 cm (1.5 - 2.6) LA Diam: 3.3 cm (2.7 - 3.8) MV EXCURSION: 19.784 mm (> 18.000) MV EF SLOPE: 70 mm/s (70 - 150) EPSS: 0.4 cm MV E Gaurav: 1.11 m/s MV DecT: 163 ms MV A Gaurav: 0.81 m/s MV E/A Ratio: 1.37 RAP: 5.00 mmHg RVSP: 28.76 mmHg FINDINGS -------- Sinus rhythm. This was a technically difficult study with suboptimal apical views. The left ventricular size is normal. There is moderate concentric left ventricular hypertrophy. O verall left ventricular systolic function is normal with, an EF between 55 - 60 %. The diastolic fi lling pattern is normal for the age of the patient 15.10. The right ventricle is moderately enlarged. Normal LA size by volume 22+/-6 ml/m2. The right atrial size is normal. 5.0mg of Lumason was utilized for enhancement of images Interatrial and interventricular septum intact. The aortic valve is trileaflet and appears structurally normal. There is no evidence of aortic regu rgitation. There is no evidence of aortic stenosis. There is trace mitral regurgitation. Mild tricuspid regurgitation present. There is no evidence of pulmonary hypertension. The right v entricular systolic pressure, as measured by Doppler, is 28.76mmHg. There is no pulmonic regurgitation present. The aortic root size is normal. IVC Not well visulized. There is no pericardial effusion. CONCLUSIONS -------- 1. The left ventricular size is normal. 2. There is moderate concentric left ventricular hypertrophy. 3. Overall left ventricular systolic function is normal with, an EF between 55 - 60 %. 4. The diastolic filling pattern is normal for the age of the patient 15.10 5. The right ventricle is moderately enlarged. 6. There is trace mitral regurgitation. 7. Mild tricuspid regurgitation present. DIRECTOR OCCUPATIONAL: Marissa Rowe RDCS
[2021-01-04 11:15] LABS: T4, Free (Free Thyroxine) 1.31 ng/dL (0.78-2.19)
[2021-01-04 11:37] LABS: Basophils # (A) 0.03 X 10*3/uL (0.00-0.10); Basophils % (A) 0.4 %; Eosinophils # (A) 0.21 X 10*3/uL (0.04-0.35); Eosinophils % (A) 2.6 %; HCT 40.9 % (39.6-50.0); HGB 13.6 g/dL (13.0-17.0); Lymphocytes % (A) 19.6 %; MCH 30.4 pg (27.0-32.0); MCHC 33.3 g/dL (32.0-37.0); MCV 91.5 fL (80.0-97.0); Mean Platelet Volume 10.8 fL (9.5-12.2); Monocytes # (A) 0.67 X 10*3/uL (0.20-1.00); Monocytes % (A) 8.2 %; Neutrophils % (A) 68.5 %; Platelet Count 233 X 10*3/uL (140-440); RBC 4.47 X 10*6/uL (4.40-5.60); RDW 11.6 % (11.5-14.5); WBC 8.17 X 10*3/uL (4.50-10.00)
[2021-01-04 12:39] LABS: Glucose,Whole Blood 172 mg/dL (75-99)
--- NOTE | 2021-01-04 14:11 | NM ---
EXAMINATION TYPE: NM stress lexiscan cardiolite DATE OF EXAM: 01/04/2021 COMPARISON: 11/26/2015 HISTORY: Chest pain TECHNIQUE: After the intravenous administration of 10.6 mCi Tc 99m Sestamibi - Cardiolite resting SP ECT images acquired 60 minutes post injection. The patient received 0.4mg Lexiscan, 24.3 mCi Tc 99m Sestamibi - Stress images obtained [address] injection FINDINGS: Review of stress and rest SPECT images demonstrates decreased uptake along the inferior and inferolat eral left ventricle on stress and rest images. There is some decreased uptake along the inferolatera l left ventricle greater on stress than on rest images towards the base of the heart. Gated analysis shows normal wall motion with an estimated left ventricular ejection fraction of 51 %. 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
--- NOTE | 2021-01-04 15:33 | P.PN ---
Subjective Progress Note Date: 01/04/21 This is a 55-year-old gentleman admitted with left chest /left-sided chest pressure ,palpitations, heart racing accompanied by shortness of breath ,diaphoresis , blurred vision, and multiple other medical issues. Evaluated by cardiology and is scheduled for Lexiscan stress test today. Telemetry reporting sinus rhythm. Objective - Vital Signs Vital signs: Vital Signs Temp 98.5 F 01/04/21 07:00 Pulse 78 01/04/21 13:59 Resp 18 01/04/21 13:59 BP 114/68 01/04/21 07:00 Pulse Ox 97 01/04/21 07:00 Intake & Output 01/03/21 01/04/21 01/04/21 18:59 06:59 18:59 Intake Total 143.986 Balance 143.986 Weight 129.274 kg 129.27 kg Intake: Intake, IV Titration 143.986 Amount Heparin Sod,Pork in 0.45% 143.986 NaCl 25,000 unit In 0.45 % NaCl 1 250ml.bag @ 7. 735 UNITS/KG/HR 9.999 mls /hr IV .Q24H [facility] Rx#: [id number] Other: Voiding Method Toilet Toilet Toilet # Voids 1 1 2 - Exam PHYSICAL EXAM: VITAL SIGNS: As above GENERAL: Sitting up in bed, no acute distress HEENT: Conjunctivae normal. eyes normal. NECK: No JVD. No thyroid enlargement. No LNs CARDIOVASCULAR: S1, S2 regular.No murmur RESPIRATION: Breath sounds diminished in the bases. No rhonchi or crackles. No bronchial breathing. ABDOMEN: Soft, nontender. No guarding. no masses palpable. No ascites, No hepatosplenomegaly.Bowel sounds heard. LEGS: No edema. no swelling PSYCHIATRY: Alert and oriented X3, mood and affect normal. NERVOUS SYSTEM: Cranial N 2-12 grossly normal. Moves all 4 limbs. No focal deficits.Strength and sensation grossly intact. Skin: Warm and dry, no rash - Labs CBC & Chem 7: 01/04/21 08:39 01/04/21 08:39 Labs: Abnormal Lab Results - Last 24 Hours (Table) 01/03/21 01/03/21 01/04/21 Range/Units 17:06 20:03 07:26 Immature Gran # (0.00-0.04) X 10*3/uL Carbon Dioxide (22-30) mmol/L Creatinine (0.66-1.25) mg/dL Glucose (74-99) mg/dL POC Glucose (mg/dL) 211 H 256 H 202 H (75-99) mg/dL TSH (0.465-4.680) mIU/L 01/04/21 01/04/21 01/04/21 Range/Units 08:39 08:39 12:38 Immature Gran # 0.06 H (0.00-0.04) X 10*3/uL Carbon Dioxide 33 H (22-30) mmol/L Creatinine 0.61 L (0.66-1.25) mg/dL Glucose 185 H (74-99) mg/dL POC Glucose (mg/dL) 172 H (75-99) mg/dL TSH 0.446 L (0.465-4.680) mIU/L Assessment and Plan Assessment: Chest pain, palpitations. Sinus tachycardia with some ST-T changes Diabetes mellitus type 2 Hypertension Hyponatremia, resolved Hypokalemia, resolved Depression Morbid obesity, BMI 42.1 Plan: Continue on current medication regime ,monitoring and symptomatic t reatment. Echo cardiogram pending. Scheduled for Lexiscan stress test. Hemoglobin A1c pending. The impression and plan of care has been dictated as directed. : I performed a history and examination of this patient, discussed the same with the dictator. I agree with the dictator's note ,documented as a scribe. Any additional findings or plans will be noted.
[2021-01-04 16:36] LABS: Hemoglobin A1C 9.2 % (4.0-6.0)
[2021-01-04 17:22] LABS: Glucose,Whole Blood 276 mg/dL (75-99)
[2021-01-04 20:17] LABS: Glucose,Whole Blood 244 mg/dL (75-99)
[2021-01-04] MEDS: GABAPENTIN 100 MG CAP PO SCH (20:29)
[2021-01-04] MEDS: MONTELUKAST 10 MG TAB PO SCH (20:29)
[2021-01-04] MEDS ORDERED: ATORVASTATIN 40 MG TAB PO SCH (21:00)
[2021-01-04] MEDS ORDERED: SODIUM CHLORIDE 0.9% 1,000 ML in EMPTY BAG 1 BAG IV ONE (23:00)
[2021-01-05] MEDS: buPROPion SR 150 MG TABLET.ER PO SCH ×2 (00:33→12:27)
[2021-01-05] MEDS ORDERED: ASPIRIN 325 MG TAB PO ONE (06:00)
[2021-01-05] MEDS ORDERED: HEPARIN SODIUM,PORCINE 10,000 UNIT in SODIUM CHLORIDE 0.9% 1,000 ML IRRIGATION PRN (07:00)
[2021-01-05] MEDS ORDERED: HEPARIN SODIUM,PORCINE 2,500 UNIT in SODIUM CHLORIDE 0.9% 250 ML IRRIGATION PRN (07:00)
[2021-01-05 07:13] LABS: Glucose,Whole Blood 178 mg/dL (75-99)
[2021-01-05] MEDS: metFORMIN 500 MG TAB PO SCH (07:13)
[2021-01-05 07:40] VITALS: TEMP 98.1
[2021-01-05] MEDS: METOPROLOL SUCCINATE (ER) 100 MG TAB.ER.24H PO SCH (07:47)
[2021-01-05] MEDS: PANTOPRAZOLE 40 MG TABLET PO SCH (07:47)
[2021-01-05] MEDS: LISINOPRIL-HCTZ 20-25 MG 1 EACH TAB PO SCH (07:47)
[2021-01-05] MEDS: POTASSIUM CHLORIDE ER 10 MEQ TAB.ER.PRT PO SCH (07:48)
[2021-01-05] MEDS: TAMSULOSIN 0.4 MG CAP.ER.24H PO SCH (07:48)
--- NOTE | 2021-01-05 08:36 | EST ---
EXERCISE STRESS INDICATION: Chest pain and palpitations. AGE: 55 SEX: M HT: 5'" WT: 284 lbs PROTOCOL: Lexiscan STAGE: n/a DURATION OF EXERCISE: n/a HEART RATE REST: 71 BLOOD PRESSURE REST: 117/68 MAXIMUM HEART RATE ACHIEVED: 103 MAXIMUM BLOOD PRESSURE: 119/69 85% MPHR: 142 100% MPHR: 167 METS: n/a RESULTS: Baseline EKG shows sinus rhythm, normal axis, normal intervals. Patient was given intravenous Lexiscan as per protocol. Did not have chest pain or diagnostic ST-segment depression. CONCLUSIONS: 1. Negative stress test by EKG criteria. 2. Cardiolite portion of the stress test will be reported separately. MMODL / IJN: [id number] /
[2021-01-05 10:03] VITALS: BMI 42.0
[2021-01-05 10:11] LABS: Basophils # (A) 0.03 X 10*3/uL (0.00-0.10); Basophils % (A) 0.4 %; Eosinophils # (A) 0.25 X 10*3/uL (0.04-0.35); Eosinophils % (A) 3.2 %; HCT 40.8 % (39.6-50.0); HGB 13.8 g/dL (13.0-17.0); Lymphocytes # (A) 1.39 X 10*3/uL (0.90-5.00); Lymphocytes % (A) 17.5 %; MCH 31.2 pg (27.0-32.0); MCHC 33.8 g/dL (32.0-37.0); MCV 92.3 fL (80.0-97.0); Mean Platelet Volume 10.9 fL (9.5-12.2); Monocytes # (A) 0.65 X 10*3/uL (0.20-1.00); Monocytes % (A) 8.2 %; Neutrophils # (A) 5.56 X 10*3/uL (1.80-7.70); Neutrophils % (A) 70.1 %; Platelet Count 235 X 10*3/uL (140-440); RBC 4.42 X 10*6/uL (4.40-5.60); RDW 11.7 % (11.5-14.5); WBC 7.93 X 10*3/uL (4.50-10.00)
[2021-01-05] MEDS ORDERED: IV FLUID CONTINUATION 1,000 ML IV ONE (10:24)
[2021-01-05] MEDS ORDERED: MIDAZOLAM 2 MG/2 ML VIAL IV ONE (10:40)
[2021-01-05] MEDS ORDERED: fentaNYL (PF) 50 MCG/ML 2 ML AMP IV ONE (10:43)
[2021-01-05] MEDS ORDERED: LIDOCAINE 1% INJ 10MG/ML (20 ML MDV) SQ ONE ×2 (10:46)
[2021-01-05 10:52] VITALS: RESP 12
[2021-01-05] MEDS ORDERED: IOPAMIDOL-370 125ML BTL INJ ONE (10:59)
[2021-01-05] MEDS ORDERED: RX INFO: IV CONTRAST WAS GIVEN 1 EACH MISC MISCELLANE PRN (11:16)
[2021-01-05 11:58] LABS: Glucose,Whole Blood 169 mg/dL (75-99)
--- NOTE | 2021-01-05 12:00 | CC ---
CARDIAC CATHETERIZATION REPORT INDICATION: Chest pain with abnormal stress test showing ischemia in the inferior and inferolateral wall. PROCEDURE NOTE: After obtaining informed consent, left heart catheterization and coronary angiogram were performed via the right femoral artery using standard Ggii catheters. The patient tolerated the procedure well without any obvious immediate complications. He received moderate conscious sedation. Total sedation time was 17 minutes. A femoral angiogram was performed and Angio-Seal was deployed for hemostasis. FINDINGS: HEMODYNAMICS: Left ventricular end-diastolic pressure is 14 mm. There is no significant gradient across the aortic valve. LEFT VENTRICULOGRAM: Not performed. ANGIOGRAPHIC DATA: LEFT MAIN CORONARY ARTERY: Left main coronary artery is a normal-sized vessel and is free of stenosis. Divides into left anterior descending coronary artery and circumflex coronary artery. LEFT ANTERIOR DESCENDING CORONARY ARTERY: LAD and its branches, circumflex coronary artery and its branches are free of significant stenosis. RIGHT CORONARY ARTERY: Right coronary artery is a large dominant vessel and is free of significant disease. CONCLUSIONS: 1. Normal coronary arteries. 2. Normal left ventricular end-diastolic pressures. 3. False-positive stress test. PLAN: I reviewed angiographic data with the patient and advised him on optimal medical therapy and risk factor modification. MMODL / IJN: [id number] /
[2021-01-05 12:01] LABS: Cholesterol 144 mg/dL (0-200); LDL Cholesterol,Calculated 83.4 mg/dL (0.0-131.0)
[2021-01-05 12:26] LABS: African American GFR (CKD) 118.2 (60.0-200.0); Anion Gap 8.4 mmol/L (4.00-12.00); BUN/Creat Ratio 12.5 Ratio (12.00-20.00); Calcium 8.5 mg/dL (8.7-10.3); Carbon Dioxide 25.6 mmol/L (21.6-31.8); Potassium 3.9 mmol/L (3.5-5.5)
[2021-01-05 14:37] VITALS: PULSE 71
[2021-01-05 14:41] VITALS: BP 115/65
--- NOTE | 2021-01-05 15:23 | P.DS ---
Providers Date of admission: 01/05/21 08:57 Expected date of discharge: 01/05/21 Attending physician: Dilshad Keene MD Consults: 01/03/21 11:58 Consult Physician Urgent Consulting Provider: Moreno Castro Consult Reason/Comments: chest pain Do you want consulting provider notified?: Yes Primary care physician: Jadyn Jassi [facility] Course: Final Diagnoses: Chest pain, palpitations. Abnormal Lexiscan stress test reporting ischemia in the inferior and inferior lateral wall, status post cardiac catheterization reporting normal coronary arteries, normal left ventricular end-diastolic pressures, false positive stress test. Sinus tachycardia with some ST-T changes Diabetes mellitus type 2, hemoglobin A1c 9.2-further diabetic education in clinic. Hypertension Hyponatremia, resolved Hypokalemia, resolved Depression Morbid obesity, BMI 42.1 Hospital course:This is a 55-year-old gentleman admitted with left chest /left- sided chest pressure ,palpitations, heart racing accompanied by shortness of breath ,diaphoresis , blurred vision, and multiple other medical issues. Evaluated by cardiology and is scheduled for Lexiscan stress test today. Telemetry reporting sinus rhythm. Echo suboptimal, reporting moderate concentric left ventricular hypertrophy, normal LV function with EF 55-60%.Abnormal Lexiscan stress test reporting ischemia in the inferior and inferior lateral wall. Proceed with cardiac catheterization reporting normal coronary arteries, normal left ventricular end- diastolic pressures, false positive stress test. Optimizing medical therapy with risk factor modification. Significant clinical improvement Patient will be discharged home today in a stable condition with guarded prognosis, pending final DC recommendations and clearance from cardiology. The impression and plan of care has been dictated as directed. : I performed a history and examination of this patient, discussed the same with the dictator. I agree with the dictator's note ,documented as a scribe. Any additional findings or plans will be noted. Patient Condition at Discharge: Stable Plan - Discharge Summary Discharge Rx Participant: Yes New Discharge Prescriptions: New Metoprolol Succinate (ER) [Toprol XL] 200 mg PO DAILY #60 tab.er.24h Atorvastatin [Lipitor] 40 mg PO HS #30 tab Continue Pantoprazole Sodium [Protonix] 40 mg PO DAILY metFORMIN HCL [Glucophage] 500 mg PO BID Montelukast [Singulair] 10 mg PO HS Gabapentin [Neurontin] 100 mg PO HS buPROPion HCL [Wellbutrin SR] 150 mg PO Q12H Tamsulosin [Flomax] 0.4 mg PO BID Potassium Chloride ER [K-Dur 10] 10 meq PO DAILY Lisinopril-Hctz 20-25 mg [Zestoretic 20-25] 1 tab PO DAILY #0 Discontinued Omeprazole 20 mg PO DAILY Metoprolol Tartrate [Lopressor] 100 mg PO DAILY amLODIPine [Norvasc] 10 mg PO DAILY Discharge Medication List Gabapentin [Neurontin] 100 mg PO HS 01/03/21 [History] Montelukast [Singulair] 10 mg PO HS 01/03/21 [History] Pantoprazole Sodium [Protonix] 40 mg PO DAILY 01/03/21 [History] Potassium Chloride ER [K-Dur 10] 10 meq PO DAILY 01/03/21 [History] Tamsulosin [Flomax] 0.4 mg PO BID 01/03/21 [History] buPROPion HCL [Wellbutrin SR] 150 mg PO Q12H 01/03/21 [History] metFORMIN HCL [Glucophage] 500 mg PO BID 01/03/21 [History] Atorvastatin [Lipitor] 40 mg PO HS #30 tab 01/04/21 [Rx] Metoprolol Succinate (ER) [Toprol XL] 200 mg PO DAILY #60 tab.er.24h 01/04/21 [Rx] Lisinopril-Hctz 20-25 mg [Zestoretic 20-25] 1 tab PO DAILY #0 01/05/21 [Rx] Follow up Appointment(s)/Referral(s): Jadyn Keene DO [Primary Care Provider] - 3 Days Oscar Harmon MD [STAFF PHYSICIAN] - 1 Week Activity/Diet/Wound Care/Special Instructions: Pending cath results, final DC recommendations and clearance from cardiology. Hemoglobin A1c 9.2,Diabetic education outpatient in clinic at PCPs office.
[2021-01-06] MEDS ORDERED: ASPIRIN 81 MG PO SCH (09:00)
[2021-01-07] MEDS ORDERED: metFORMIN 500 MG TAB PO SCH (17:30)
== END 2021-01-05 19:30 | disposition home or self-care (01) | DRG 287 ==
LOC: EC 10:08 → 6NMEDSUR 12:05 → OBSVTOIN 01-05 08:57
PROVIDERS: ADMIT Family Medicine; ATTEND Family Medicine
PROC: B2111ZZ Fluoroscopy of Multiple Coronary Arteries using Low Osmolar Contrast (ICD-10-PCS; 2021-01-05)
PROC: 4A023N7 Measurement of Cardiac Sampling and Pressure, Left Heart, Percutaneous Approach (ICD-10-PCS; principal; 2021-01-05 08:25)
DX: R07.89 Other chest pain (principal); E87.1 Hypo-osmolality and hyponatremia; Z68.41 Body mass index [BMI] 40.0-44.9, adult; R00.2 Palpitations; R07.9 Chest pain, unspecified; E11.9 Type 2 diabetes mellitus without complications; Z79.84 Long term (current) use of oral hypoglycemic drugs; F32.9 Major depressive disorder, single episode, unspecified; Z82.49 Family history of ischemic heart disease and other diseases of the circulatory system; I10 Essential (primary) hypertension; J42 Unspecified chronic bronchitis; E87.6 Hypokalemia; R00.0 Tachycardia, unspecified; Z87.442 Personal history of urinary calculi; E66.01 Morbid (severe) obesity due to excess calories; G89.29 Other chronic pain; Z79.899 Other long term (current) drug therapy
CPT/HCPCS: 36415; 71046; 78452; 80048; 80053; 80061; 83036; 83690; 83735; 83880; 84439; 84443; 84484; 85025; 85379; 85610; 85730; 93005; 93017; 93306; 93458; 99285

== ENCOUNTER → 2021-04-05 | Outpatient (CLI) | payer OTHER ==
--- NOTE | 2021-04-06 02:35 | MR ---
EXAMINATION TYPE: MR wrist LT wo con DATE OF EXAM: 04/05/2021 COMPARISON: None HISTORY: Left Wrist pain/mass x 5years Multiplanar multiecho imaging of the left wrist without contrast. Carpal bones are intact. Intercarpal joint spaces are fairly normal. Radiocarpal joint space is fairl y normal. The extensor and flexor tendons of the wrist appear intact. Collateral ligaments appear int act. The triangular fibrocartilage appears intact. I see no bony destructive process. There is no celso dence of any significant bone edema. Exam limited somewhat by motion. There is 5 mm area of mixed signal in the distal ulna at the radial ulnar joint consistent with degen erative cyst formation. IMPRESSION: There is some degenerative cyst formation and distal ulna. No fracture seen. No significant joint spa ce narrowing.
== END | disposition home or self-care (01) ==
LOC: RADMRIMAIN 19:04
PROVIDERS: ATTEND Orthopaedic Surgery Hand Surgery
DX: M85.642 Other cyst of bone, left hand (principal)

== ENCOUNTER → 2021-08-13 | Outpatient (CLI) | payer OTHER ==
[2021-08-13 18:49] LABS: Basophils # (A) 0.03 X 10*3/uL (0.00-0.10); Basophils % (A) 0.3 %; Eosinophils # (A) 0.31 X 10*3/uL (0.04-0.35); Eosinophils % (A) 3.2 %; HCT 43.1 % (39.6-50.0); HGB 14.5 g/dL (13.0-17.0); Immature Grans, Automated 0.9 %; Lymphocytes # (A) 2.23 X 10*3/uL (0.90-5.00); Lymphocytes % (A) 23.3 %; MCHC 33.6 g/dL (32.0-37.0); MCV 92.1 fL (80.0-97.0); Monocytes # (A) 0.76 X 10*3/uL (0.20-1.00); Monocytes % (A) 7.9 %; NRBC Per 100 WBC 0 /100 WBCS (0.0-0.0); Neutrophils # (A) 6.16 X 10*3/uL (1.80-7.70); Neutrophils % (A) 64.4 %; Platelet Count 276 X 10*3/uL (140-440); RBC 4.68 X 10*6/uL (4.40-5.60); RDW 12.1 % (11.5-14.5); WBC 9.58 X 10*3/uL (4.50-10.00)
[2021-08-13 19:01] LABS: African American GFR (CKD) 111.8 (60.0-200.0); Anion Gap 11.8 mmol/L (10.00-18.00); BUN/Creat Ratio 14.78 Ratio (12.00-20.00); Blood Urea Nitrogen 13.3 mg/dL (9.0-27.0); Calcium 9.1 mg/dL (8.7-10.3); Carbon Dioxide 25.2 mmol/L (20.0-27.5); Non-African American GFR(CKD) 96.5 (60.0-200.0); Potassium 3.8 mmol/L (3.5-5.5)
[2021-08-13 19:49] LABS: INR 0.89 (0.90-1.11); Prothrombin Time 9.8 sec (9.9-11.9)
== END | disposition home or self-care (01) ==
LOC: LABPAT 10:59
PROVIDERS: ATTEND Orthopaedic Surgery
DX: Z01.812 Encounter for preprocedural laboratory examination (principal); M16.11 Unilateral primary osteoarthritis, right hip
CPT/HCPCS: 36415; 80048; 85025; 85610; 87070

== ENCOUNTER 2021-08-24 12:45 | Observation (INO) | payer OTHER ==
[2021-08-20 11:36] VITALS: BMI 40.7
--- NOTE | 2021-08-23 09:27 | HP ---
HISTORY AND PHYSICAL CHIEF COMPLAINT: Right hip pain. 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 He has anterior pain that radiates into his thigh and groin with walking. He walks with a limp. He has taken anti- inflammatories without much relief. He has also been working diligently on weight loss and has lost 36 pounds over the past several months. PAST MEDICAL HISTORY: Significant for type 2 diabetes and hypertension along with arthritis. PAST SURGICAL HISTORY: Negative. CURRENT MEDICATIONS: Atorvastatin, bupropion, lisinopril, metformin, metoprolol, omeprazole. ALLERGIES: HE DENIES DRUG ALLERGIES. FAMILY HISTORY: Significant for heart disease. SOCIAL HISTORY: Negative for current tobacco or alcohol use. REVIEW OF SYSTEMS: Sixteen-point review of systems otherwise reviewed and is noncontributory. PHYSICAL EXAMINATION: On examination, the patient is approximately 5 feet 9 inches, 271 pounds of endomorphic habitus. HEENT exam is nonfocal. NECK is supple. Passive motion of right hip: Flexion 60 degrees, external rotation with the hip flexed 45 degrees, internal rotation minus 10 degrees with pain. Clinically he has 1 cm shortening of the right lower extremity compared to the left. He has an antalgic gait pattern. His distal neurovascular exam appears intact in the right lower extremity. AP and lateral views of the right hip obtained in the office show severe osteoarthrosis with [id number] changes. IMPRESSION: 1. Right hip severe osteoarthrosis. 2. Obesity. RECOMMENDATIONS: I talked to the patient and his at length regarding his condition along with treatment options. At this point he is quite limited because of pain related to his osteoarthrosis despite conservative measures. After thorough discussion, he opts to proceed with surgery. We will plan to proceed with right total hip arthroplasty, which we will plan on performing from a lateral approach. Risks and benefits were discussed at length in layman's terms. We will institute DVT prophylaxis postoperatively. MMODL / IJN: [id number] /
[~2021-08-24 12:45] MED LIST: ACETAMINOPHEN TAB 500 MG TAB PO PRN; HYDROmorphone 0.5 MG/0.5 ML SYRINGE IVP PRN; LIDOCAINE 1% (10MG/ML) FOR IV START INTRADERMA PRN; MELOXICAM 7.5 MG TAB PO PRN; ONDANSETRON 4 MG/2 ML VIAL IVP ONE; TRANEXAMIC ACID 1,000 MG in SODIUM CHLORIDE 0.9% 100 ML IVPB PRN; TRANEXAMIC ACID IN NACL,ISO-OS 100 ML IV PRN; ceFAZolin 3 GM in SODIUM CHLORIDE 0.9% 100 ML IVPB PRN
[2021-08-24] MEDS ORDERED: DEXAMETHASONE SOD PHOSPHATE 4 MG/ML 1 ML VIAL IVP ONE (13:30)
[2021-08-24 13:35] LABS: Glucose,Whole Blood 135 mg/dL (75-99)
[2021-08-24] MEDS: LACTATED RINGERS 1,000 ML IV SCH (13:38)
[2021-08-24] MEDS ORDERED: HYDROmorphone (PF) 1 MG/ML ONE (15:50)
[2021-08-24] MEDS ORDERED: PROPOFOL 10 MG/ML 20 ML VIAL IV ONE (15:50)
[2021-08-24] MEDS ORDERED: fentaNYL (PF) 50 MCG/ML 2 ML AMP ONE (15:50)
[2021-08-24] MEDS ORDERED: ePHEDrine 50 MG/ML 1 ML VIAL ONE (15:50)
[2021-08-24] MEDS ORDERED: MIDAZOLAM 2 MG/2 ML VIAL ONE (15:50)
[2021-08-24] MEDS ORDERED: LACTATED RINGERS 1,000 ML IV ONE (16:52)
[2021-08-24] MEDS ORDERED: MAGNESIUM HYDROXIDE 2,400 MG/10 ML CUP PO PRN (17:31)
[2021-08-24] MEDS ORDERED: NALOXONE 0.4 MG/ML 1 ML VIAL IV PRN (17:31)
[2021-08-24] MEDS ORDERED: HYDROcodone/APAP 5-325MG 1 EACH TAB PO PRN (17:31)
--- NOTE | 2021-08-24 17:54 | P.OP ---
Date of Procedure: 08/24/21 Preoperative Diagnosis: Severe right hip osteoarthrosis Postoperative Diagnosis: Same Procedure(s) Performed: Right total hip arthroplastypress-fitlateral approach Implants: Depuy Corail size 10 press-fit collared KLA femoral stem, 36+5 cobalt chrome femoral head, 60 mm Warren acetabular shell with neutral polyethylene liner. Anesthesia: GETA, spinal Surgeon: Jc Aquino Telephonic Nurse Case Manager #1: Leo Canales Estimated Blood Loss (ml): 100 Pathology: other (Femoral head) Condition: stable Disposition: PACU Indications for Procedure: The patient's a 56-year-old male who presents with progressive right hip pain secondary to osteoarthrosis despite conservative measures. A discussion of the risks and benefits of operative intervention versus continued conservative measures was made with patient. He opted to proceed with surgery. Operative risks to include infection, neurovascular injury, development of blood clots, leg length discrepancy, fracture, instability and possible need for subsequent procedures was discussed. Informed consent was obtained. Operative Findings: As below Description of Procedure: The patient was brought to the operating room, and after induction of spinal anesthesia was placed in a lateral decubitus position. The bony prominences were appropriately padded. The pelvis was stable perpendicular to the floor with a pegboard. The right lower extremity was prepped and draped in normal fashion. The spinal was ineffective, therefore was converted to a general anesthetic. A 12 cm incision was then made centered over the greater trochanter extending superiorly to level the ASIS and distally in line with the femoral shaft. The skin and subcutaneous tissues were divided sharply. Electrocautery was used for hemostasis. The fascia neymar and gluteus mouna fascia was split in line with the skin incision. The muscle fibers were bluntly dissected proximally. A self-retaining retractor was placed. The anterior and posterior margins of the gluteus medius muscles identified and the anterior two thirds was detached from the greater trochanter with electrocautery. The gluteus minimus tendon was identified and detached in a similar fashion. A wide capsulotomy was performed. The femoral neck fracture was identified in the lower neck cut was made approximately 1 1/2 cm above the level of the lesser trochanter with a sagittal saw at a 45 the shaft. The head was then extracted with a corkscrew. Attention was then paid towards preparing the acetabular. Anterior and posterior retractors were placed. The remaining capsular labral tissues debrided sharply clearly defining the acetabular margins. Began reaming with a 51 mm reamer taking care to initially medialize, then reaming at 45 of abduction and 20 of anteversion. Sequential reaming is performed up to 59 mm. This was down to bleeding bony surface. A trial 60 mm acetabular shell was inserted at 45 of abduction and 20 of anteversion. This was fully seated. There was good rim fit and stability. A neutral polyethylene liner was then impacted. Care taken to avoid any soft tissue interposition. Attention was then paid towards preparing the proximal femur. A box chisel was used to open the metaphyseal region. A canal finder was used to find the femoral canal. Sequential broaching was performed up to a size 10. This is placed in 15 of anteversion with the leg perpendicular floor judging off the trans-epicondylar axis. There is good rotational stability. A calcar mill was used to fashion the medial calcar. A trial KLA neck along with a 36 mm + 5 trial head was placed. The hip was gently reduced. It was taken through range of motion. I felt to be stable in flexion and extension with internal and external rotation. I felt there was adequate gnosticism of soft tissue tension. The hip was gently dislocated. The trial components removed. Pulsatile lavage was utilized. The final size 10 KLA collared femoral stem was inserted again with the leg perpendicular to the floor in 15 of anteversion. Again there was good rotational stability. A 36 mm + 5 cobalt chrome femoral head was gently impacted. The hip was gently reduced. Again it was taken through motion and felt to be stable in flexion and extension with internal and external rotation. Pulsatile lavage was again utilized. With the leg in abduction the gluteus minimus and medius tendons reattached to the greater trochanter with #2 Ethibond suture. There was minimal drainage therefore a deep drain was not placed. The fascia neymar and gluteus mouna fascia was closed with #2 Ethibond suture. The subcutaneous tissues were reapproximated interrupted 2-0 Vicryl sutures. The skin was reapproximated with 3-0 subcuticular strata fix suture. Skin tape and adhesive was applied. A sterile dressing was applied. The patient was awoken from general anesthesia and transferred to recovery room in good condition. Blood loss was estimated 100 mL. No complications were incurred. Sponge and needle counts were correct in the case. Leo MCMILLAN assisted during the major composes case to include exposure, implantation, and closure.
--- NOTE | 2021-08-24 18:20 | XR ---
RESULT: HISTORY: Status post hip surgery, assess surgical alignment TECHNIQUE: AP view of the right hip. COMPARISON: 07/14/2021. FINDINGS: There is interval right hip arthroplasty. All prosthetic components are well seated and alignment is anatomic. No acute osseous abnormality. Postsurgical changes about soft tissue seen. IMPRESSION: Status post right hip arthroplasty.
[2021-08-24] MEDS ORDERED: ONDANSETRON 4 MG/2 ML VIAL IVP PRN (19:51)
[2021-08-24 20:18] LABS: Glucose,Whole Blood 156 mg/dL (75-99)
[2021-08-24] MEDS: SENNOSIDES-DOCUSATE SODIUM 1 EACH TAB PO SCH (20:32)
[2021-08-24] MEDS: HYDROmorphone 0.5 MG/0.5 ML SYRINGE IVP PRN (20:32)
[2021-08-24] MEDS: MONTELUKAST 10 MG TAB PO SCH (22:11)
[2021-08-24] MEDS: ATORVASTATIN 40 MG TAB PO SCH (22:11)
[2021-08-24] MEDS: INSULIN ASPART (NovoLOG) 100 UNIT/ML VIAL SQ SCH (22:11)
[2021-08-24] MEDS: TAMSULOSIN 0.4 MG CAP.ER.24H PO SCH (22:12)
[2021-08-24] MEDS: HYDROcodone/APAP 7.5-325MG 1 EACH TAB PO PRN (22:12)
[2021-08-24] MEDS: metFORMIN 500 MG TAB PO SCH (22:14)
[2021-08-25] MEDS: ceFAZolin 3 GM in SODIUM CHLORIDE 0.9% 100 ML IVPB SCH ×2 (02:21→08:40)
[2021-08-25] MEDS: HYDROcodone/APAP 7.5-325MG 1 EACH TAB PO PRN ×3 (03:41→16:59)
[2021-08-25] MEDS: HYDROmorphone 0.5 MG/0.5 ML SYRINGE IVP PRN ×3 (06:17→13:06)
[2021-08-25 06:50] LABS: Glucose,Whole Blood 140 mg/dL (75-99)
[2021-08-25] MEDS: INSULIN ASPART (NovoLOG) 100 UNIT/ML VIAL SQ SCH ×5 (07:07→20:37)
[2021-08-25] MEDS: ENOXAPARIN 40 MG/0.4 ML SYRINGE SQ SCH (08:40)
[2021-08-25] MEDS: METOPROLOL SUCCINATE (ER) 100 MG TAB.ER.24H PO SCH (08:41)
[2021-08-25] MEDS: metFORMIN 500 MG TAB PO SCH ×2 (08:41→20:38)
[2021-08-25] MEDS: PANTOPRAZOLE 40 MG TABLET PO SCH (08:41)
[2021-08-25] MEDS: TAMSULOSIN 0.4 MG CAP.ER.24H PO SCH ×2 (08:41→20:38)
[2021-08-25 08:58] LABS: Basophils # (A) 0.02 X 10*3/uL (0.00-0.10); Basophils % (A) 0.1 %; Eosinophils # (A) 0.01 X 10*3/uL (0.04-0.35); Eosinophils % (A) 0.1 %; HCT 38.4 % (39.6-50.0); HGB 12.6 g/dL (13.0-17.0); Immature Grans, Automated 0.6 %; Lymphocytes % (A) 7.9 %; MCH 30.4 pg (27.0-32.0); MCHC 32.8 g/dL (32.0-37.0); MCV 92.5 fL (80.0-97.0); Mean Platelet Volume 10.9 fL (9.5-12.2); Monocytes # (A) 1.45 X 10*3/uL (0.20-1.00); Monocytes % (A) 10.4 %; NRBC Per 100 WBC 0 /100 WBCS (0.0-0.0); Neutrophils # (A) 11.32 X 10*3/uL (1.80-7.70); Neutrophils % (A) 80.9 %; Platelet Count 234 X 10*3/uL (140-440); RBC 4.15 X 10*6/uL (4.40-5.60); RDW 12.3 % (11.5-14.5); WBC 13.99 X 10*3/uL (4.50-10.00)
--- NOTE | 2021-08-25 10:22 | P.DS ---
Providers Date of admission: 08/24/2021 Expected date of discharge: 08/25/21 Attending physician: Jc Aquino Consults: 08/24/21 17:36 Consult Physician Routine Consulting Provider: Dilshad Keene Consult Reason/Comments: Medical Management s/p right total hip arthroplasty Do you want consulting provider notified?: Yes Primary care physician: Jadyn Keene Hospital Course: Date of admission: 08/24/2021 Date of discharge: 08/25/2021 Admission diagnosis: Right hip osteoarthritis Discharge diagnosis: Same Attending physician: Dr. Aquino Surgical procedures: Right total hip arthroplasty Brief history: Patient is a 56-year-old male with a history of progressive primary right hip osteoarthritis. At this point patient has failed conservative treatment measures and has opted to proceed with a elective right total hip arthroplasty. Hospital course: Details of patient's surgery can be found in operative report. Patient tolerated the procedure well and was subsequently transported to orthopedic floor. Patient's orthopeidc and medical care was provided daily. Patient had daily laboratory tests performed for evaluation of overall blood counts. Patient had daily physical therapy to include strengthening range of motion as well as education with walker ambulation. Patient was treated with Lovenox for their postoperative DVT prophylaxis during their inpatient stay. Patient was noted to have a relatively uneventful postoperative course. Patient reported satisfactory pain control with oral pain medications by postoperative day 1. Patient showed satisfactory progress with physical therapy. Patient moved steadily through the program and had no difficulty meeting the goals by postoperative day 1. Given patient's otherwise satisfactory course and having met physical therapy goals, plan is to discharge patient home on postoperative day 1. Discharge condition/disposition: Patient will be discharged home with health services in stable condition. Discharge medications: Instructions are given on resumption of patient's normal daily medications per primary care recommendation, in addition patient will be prescribed [place] 7.5 mg/325 mg; Colace; Eliquis 2.5 mg BID x 2 weeks. Discharge instructions: 1. Wound care and infection precautions, keep incision dry and covered while showering, no lotions, creams, moisturizers. No soaking, tubs, pools, hottubs. Do not scrub over the incision. 2. Weight-bear as tolerated with walker / cane until follow-up. 3. Ice and elevate when necessary. Do not exceed 20 minutes per hour with ice pack. 4. Utilize compression sleeve until seen at first follow up appointment. 5. Visiting nursing care. 6. Home physical therapy. 7. Pain meds and anticoagulants per prescription. 8. Pain medication has potential to cause constipation. Increase oral fluid and fiber intake. Contact primary care provider if you have not had a bowel movement within 48 hours after discharge 9. No anti-inflammatory medication until discussed at first post operative visit, this including Motrin, Aleve, Mobic, Diclofenac. 10. Follow up in office at 2 weeks postop with Sreedhar Hatch PA-C / Leo Canales PA-C 11. Follow up with your primary care doctor 7-10 days after discharge. 12. Contact [facility] with any questions, . Keep incision clean, dry, intact. While showering, cover mesh tape with Saran wrap. Follow up in office in 2 weeks Medications: [place] 7.5 mg/325 mg; Colace; Eliquis 2.5 mg BID x 2 weeks. Assessment: Right hip osteoarthritis Procedures: Right total hip arthroplasty Patient Condition at Discharge: Good Plan - Discharge Summary Discharge Rx Participant: Yes New Discharge Prescriptions: New Docusate [Colace] 100 mg PO DAILY #30 capsule Apixaban [Eliquis] 2.5 mg PO BID #60 tab HYDROcodone/APAP 7.5-325MG [[place] 7.5] 1 - 2 each PO Q6HR PRN #36 tab PRN Reason: Pain No Action Pantoprazole Sodium [Protonix] 40 mg PO DAILY metFORMIN HCL [Glucophage] 1,000 mg PO BID Montelukast [Singulair] 10 mg PO HS Metoprolol Succinate (ER) [Toprol XL] 200 mg PO DAILY #60 tab.er.24h rOPINIRole HCL [Requip] 0.25 mg PO HS Lisinopril-Hctz 20-25 mg [Zestoretic 20-25] 1 tab PO HS buPROPion HCL [Wellbutrin SR] 150 mg PO DAILY Tamsulosin [Flomax] 0.4 mg PO BID Potassium Chloride ER [K-Dur 10] 10 meq PO DAILY Atorvastatin [Lipitor] 40 mg PO HS #30 tab Aspirin [Vazalore] 81 mg PO DAILY Tadalafil [Cialis] 5 mg PO DAILY Discharge Medication List Montelukast [Singulair] 10 mg PO HS 01/03/21 [History] Pantoprazole Sodium [Protonix] 40 mg PO DAILY 01/03/21 [History] Potassium Chloride ER [K-Dur 10] 10 meq PO DAILY 01/03/21 [History] Tamsulosin [Flomax] 0.4 mg PO BID 01/03/21 [History] buPROPion HCL [Wellbutrin SR] 150 mg PO DAILY 01/03/21 [History] metFORMIN HCL [Glucophage] 1,000 mg PO BID 01/03/21 [History] Atorvastatin [Lipitor] 40 mg PO HS #30 tab 01/04/21 [Rx] Metoprolol Succinate (ER) [Toprol XL] 200 mg PO DAILY #60 tab.er.24h 01/04/21 [Rx] Aspirin [Vazalore] 81 mg PO DAILY 08/20/21 [History] Lisinopril-Hctz 20-25 mg [Zestoretic 20-25] 1 tab PO HS 08/20/21 [History] Tadalafil [Cialis] 5 mg PO DAILY 08/20/21 [History] rOPINIRole HCL [Requip] 0.25 mg PO HS 08/20/21 [History] Apixaban [Eliquis] 2.5 mg PO BID #60 tab 08/25/21 [Rx] Docusate [Colace] 100 mg PO DAILY #30 capsule 08/25/21 [Rx] HYDROcodone/APAP 7.5-325MG [[place] 7.5] 1 - 2 each PO Q6HR PRN #36 tab 08/25/21 [Rx] Follow up Appointment(s)/Referral(s): Leo Canales PAC [PHYSICIAN CLEAT FEEDER] - 2 Weeks [facility] [NON-STAFF] - As Needed (walker ) [facility]tero Senior [NON-STAFF] - As Needed Patient Instructions/Handouts: Total Hip Replacement (DC) Activity/Diet/Wound Care/Special Instructions: Discharge instructions: 1. Wound care and infection precautions, keep incision dry and covered while showering, no lotions, creams, moisturizers. No soaking, tubs, pools, hottubs. Do not scrub over the incision. 2. Weight-bear as tolerated with walker / cane until follow-up. 3. Ice and elevate when necessary. Do not exceed 20 minutes per hour with ice pack. 4. Utilize compression sleeve until seen at first follow up appointment. 5. Visiting nursing care. 6. Home physical therapy. 7. Pain meds and anticoagulants per prescription. 8. Pain medication has potential to cause constipation. Increase oral fluid and fiber intake. Contact primary care provider if you have not had a bowel movement within 48 hours after discharge 9. No anti-inflammatory medication until discussed at first post operative visit, this including Motrin, Aleve, Mobic, Diclofenac. 10. Follow up in office at 2 weeks postop with Sreedhar Hatch PA-C / Leo Canales PA-C 11. Follow up with your primary care doctor 7-10 days after discharge. 12. Contact [facility] with any questions, . Keep incision clean, dry, intact. While showering, cover mesh tape with Saran wrap. Follow up in office in 2 weeks Medications: [place] 7.5 mg/325 mg; Colace; Eliquis 2.5 mg BID x 2 weeks.
[2021-08-25 11:36] LABS: Glucose,Whole Blood 234 mg/dL (75-99)
[2021-08-25] MEDS: LACTATED RINGERS 1,000 ML IV SCH (12:20)
[2021-08-25] MEDS: buPROPion SR 150 MG TABLET.ER PO SCH (12:55)
--- NOTE | 2021-08-25 15:11 | P.PN ---
Subjective Progress Note Date: 08/25/21 Principal diagnosis: right hip osteoarthritis patient was seen at bedside this morning resting comfortably lying semirecumbent in bed. Patient says he rates his pain as 7/10 currently. patient states most of the pain is right over the incision on his right hip. Patient says he has gotten up to go to the bathroom. Patient did get up with physical therapy, however, patient was unable to go up and down steps due to pain. Patient says he does not have a walker at home. patient says he has had a bowel movement since surgery yesterday. Patient denies chest pain, fever, shortness of breath, nausea, vomiting, change in vision, loss of bowel/bladder control. Objective - Vital Signs Vital signs: Vital Signs Temp 98.8 F 08/25/21 07:13 Pulse 76 08/25/21 07:13 Resp 18 08/25/21 07:13 BP 125/76 08/25/21 07:13 Pulse Ox 96 08/25/21 07:13 Intake & Output 08/24/21 08/25/21 08/25/21 18:59 06:59 18:59 Intake Total 1600 Output Total 100 Balance 1500 Weight 124.3 kg 124.3 kg Intake: IV 1600 Output: Estimated Blood Loss 100 Other: # Voids 2 - Exam Right hip: Incision is clean, dry, and intact. The mesh tape is in good condition. There is minimal soft tissue swelling and ecchymosis surrounding the medial and lateral aspects of the incision. Calf is soft, no tenderness with palpation. Plantar flexion, dorsiflexion, EHL, FHL are intact. Sensory exam to light touch throughout the extremity is intact, dorsal pedis pulses 2+. - Labs CBC & Chem 7: 08/25/21 04:37 Labs: Abnormal Lab Results - Last 24 Hours (Table) 08/24/21 08/24/21 08/25/21 Range/Units 13:34 20:17 04:37 WBC 13.99 H (4.50-10.00) X 10*3/uL RBC 4.15 L (4.40-5.60) X 10*6/uL Hgb 12.6 L (13.0-17.0) g/dL Hct 38.4 L (39.6-50.0) % Immature Gran # 0.09 H (0.00-0.04) X 10*3/uL Neutrophils # 11.32 H (1.80-7.70) X 10*3/uL Monocytes # 1.45 H (0.20-1.00) X 10*3/uL Eosinophils # 0.01 L (0.04-0.35) X 10*3/uL POC Glucose (mg/dL) 135 H 156 H (75-99) mg/dL 08/25/21 Range/Units 06:49 WBC (4.50-10.00) X 10*3/uL RBC (4.40-5.60) X 10*6/uL Hgb (13.0-17.0) g/dL Hct (39.6-50.0) % Immature Gran # (0.00-0.04) X 10*3/uL Neutrophils # (1.80-7.70) X 10*3/uL Monocytes # (0.20-1.00) X 10*3/uL Eosinophils # (0.04-0.35) X 10*3/uL POC Glucose (mg/dL) 140 H (75-99) mg/dL Assessment and Plan Assessment: 1. right hip osteoarthritis Postoperative day #1 status post right total hip arthroplasty Plan: 1. right hip osteoarthritis - right total hip arthroplasty performed yesterday, 08/24/2021. patient stable at bedside this morning. walker ordered. Plan to discharge home tomorrow with health services 2. Appreciate medical management 3. Pain Mangement - [place]; Dilaudid only if necessary 4. DVt ppx - Lovenox in hospital; going home with Eliquis 2.5 mg BID x 2 weeks 5. GI ppx - senna; colace 6. PT/OT - WBAT w/walker 7. Encourage incentive spirometer use 8. Discharge planning - plan discharge home tomorrow, , 08/26/2021 with health services Time with Patient: Less than 30
[2021-08-25 16:49] LABS: Glucose,Whole Blood 135 mg/dL (75-99)
[2021-08-25 20:37] LABS: Glucose,Whole Blood 144 mg/dL (75-99)
[2021-08-25] MEDS: MONTELUKAST 10 MG TAB PO SCH (20:38)
[2021-08-25] MEDS: ATORVASTATIN 40 MG TAB PO SCH (20:38)
[2021-08-25] MEDS: SENNOSIDES-DOCUSATE SODIUM 1 EACH TAB PO SCH (20:38)
[2021-08-25 21:26] VITALS: RESP 16
[2021-08-26 02:57] VITALS: TEMP 98.8
[2021-08-26] MEDS: HYDROcodone/APAP 7.5-325MG 1 EACH TAB PO PRN ×2 (04:38→10:06)
[2021-08-26 07:02] LABS: Glucose,Whole Blood 183 mg/dL (75-99)
[2021-08-26] MEDS: LACTATED RINGERS 1,000 ML IV SCH (07:21)
[2021-08-26] MEDS: metFORMIN 500 MG TAB PO SCH (07:23)
[2021-08-26] MEDS: TAMSULOSIN 0.4 MG CAP.ER.24H PO SCH (07:23)
[2021-08-26] MEDS: ENOXAPARIN 40 MG/0.4 ML SYRINGE SQ SCH (07:23)
[2021-08-26] MEDS: buPROPion SR 150 MG TABLET.ER PO SCH (07:23)
[2021-08-26] MEDS: PANTOPRAZOLE 40 MG TABLET PO SCH (07:23)
[2021-08-26] MEDS: INSULIN ASPART (NovoLOG) 100 UNIT/ML VIAL SQ SCH ×2 (07:24→12:13)
--- NOTE | 2021-08-26 08:43 | P.CONS ---
History of Present Illness - Reason for Consult Consult date: 08/25/21 medical eval - Chief Complaint R hip pain - History of Present Illness Tushar Thacker is a 56 yo M with PMH of T2DM, HTN, HLD, OA who is admitted for scheduled R CHEL. He is POD#1 today, reports moderate pain with ambulation, overall doing well today. Denies chest pain, shortness of breath, palpitations. BP is controlled today. He is ambulating with PT. Review of Systems All systems: negative Constitutional: Denies chills, Denies fever Eyes: denies blurred vision, denies pain Ears, nose, mouth and throat: Denies headache, Denies sore throat Cardiovascular: Denies chest pain, Denies shortness of breath Respiratory: Denies cough Gastrointestinal: Denies abdominal pain, Denies diarrhea, Denies nausea, Denies vomiting Musculoskeletal: Denies myalgias Integumentary: Denies pruritus, Denies rash Neurological: Denies numbness, Denies weakness Psychiatric: Denies anxiety, Denies depression Endocrine: Denies fatigue, Denies weight change Past Medical History Past Medical History: Diabetes Mellitus, GERD/Reflux, Hyperlipidemia, Hypertensi on, Sleep Apnea/CPAP/BIPAP Additional Past Medical History / Comment(s): CHRONIC BRONCHITIS, C PAP MACHINE- NOT USING , HX OF KIDNEY STONE. History of Any Multi-Drug Resistant Organisms: None Reported Past Surgical History: Appendectomy, Heart Catheterization, Tonsillectomy Additional Past Surgical History / Comment(s): KIDNEY STONE REMOVED. FATTY LIPOMA REMOVED FROM LEFT WRIST AREA, R Hip replacement Past Anesthesia/Blood Transfusion Reactions: Postoperative Nausea & Vomiting (PONV) Past Psychological History: Depression Smoking Status: Never smoker Past Alcohol Use History: None Reported Past Drug Use History: None Reported - Past Family History Mother Family Medical History: Deep Vein Thrombosis (DVT) Medications and Allergies Home Medications Medication Instructions Recorded Confirmed Type Montelukast [Singulair] 10 mg PO HS 01/03/21 08/20/21 History Pantoprazole Sodium [Protonix] 40 mg PO DAILY 01/03/21 08/20/21 History Potassium Chloride ER [K-Dur 10] 10 meq PO DAILY 01/03/21 08/20/21 History Tamsulosin [Flomax] 0.4 mg PO BID 01/03/21 08/20/21 History buPROPion HCL [Wellbutrin SR] 150 mg PO DAILY 01/03/21 08/20/21 History metFORMIN HCL [Glucophage] 1,000 mg PO BID 01/03/21 08/20/21 History Atorvastatin [Lipitor] 40 mg PO HS #30 tab 01/04/21 08/20/21 Rx Metoprolol Succinate (ER) [Toprol 200 mg PO DAILY #60 tab.er.24h 01/04/21 Rx XL] Aspirin [Vazalore] 81 mg PO DAILY 08/20/21 08/20/21 History Lisinopril-Hctz 20-25 mg 1 tab PO HS 08/20/21 08/20/21 History [Zestoretic 20-25] Tadalafil [Cialis] 5 mg PO DAILY 08/20/21 08/24/21 History rOPINIRole HCL [Requip] 0.25 mg PO HS 08/20/21 08/24/21 History Apixaban [Eliquis] 2.5 mg PO BID #60 tab 08/25/21 Rx Docusate [Colace] 100 mg PO DAILY #30 capsule 08/25/21 Rx HYDROcodone/APAP 7.5-325MG [[place] 1 - 2 each PO Q6HR PRN #36 tab 08/25/21 Rx 7.5] Allergies Allergy/AdvReac Type Severity Reaction Status Date / Time No Known Allergies Allergy Verified 08/20/21 10:41 Physical Exam Vitals: Vital Signs Temp Pulse Resp BP Pulse Ox 08/26/21 02:00 98.8 F 84 16 154/74 95 08/25/21 20:00 99.1 F 70 16 108/70 93 L 08/25/21 13:51 100.3 F H 96 18 120/68 95 Intake and Output 08/25/21 08/26/21 08/26/21 22:59 06:59 14:59 Intake Total 750 Balance 750 Intake: Intake, IV Titration 100 Amount ceFAZolin 3 gm In Sodium 100 Chloride 0.9% 100 ml @ 200 mls/hr IVPB Q8HR [facility] Rx#:[id number] Oral 650 Other: # Voids 3 2 General: well developed, well nourished, NAD HEENT: NC/AT, mmm Neck: supple, no thyromegaly, no JVD CV: RRR, no murmur Lungs: normal effort, clear throughout Abd: soft, nontender, non distended Skin: warm and dry. Results CBC & Chem 7: 08/25/21 04:37 Labs: Abnormal Lab Results - Last 24 Hours (Table) 08/25/21 08/25/21 08/25/21 Range/Units 04:37 11:35 16:48 WBC 13.99 H (4.50-10.00) X 10*3/uL RBC 4.15 L (4.40-5.60) X 10*6/uL Hgb 12.6 L (13.0-17.0) g/dL Hct 38.4 L (39.6-50.0) % Immature Gran # 0.09 H (0.00-0.04) X 10*3/uL Neutrophils # 11.32 H (1.80-7.70) X 10*3/uL Monocytes # 1.45 H (0.20-1.00) X 10*3/uL Eosinophils # 0.01 L (0.04-0.35) X 10*3/uL POC Glucose (mg/dL) 234 H 135 H (75-99) mg/dL 08/25/21 08/26/21 Range/Units 20:36 07:00 WBC (4.50-10.00) X 10*3/uL RBC (4.40-5.60) X 10*6/uL Hgb (13.0-17.0) g/dL Hct (39.6-50.0) % Immature Gran # (0.00-0.04) X 10*3/uL Neutrophils # (1.80-7.70) X 10*3/uL Monocytes # (0.20-1.00) X 10*3/uL Eosinophils # (0.04-0.35) X 10*3/uL POC Glucose (mg/dL) 144 H 183 H (75-99) mg/dL Assessment and Plan Plan: 1. R hip OA s/p R CHEL. Management per Ortho. Agree with lovenox, plan for discharge on eliquis for 2 weeks. Continue with PT 2. T2DM. restart metformin. Accucheck and sliding scale 3. HTN. Resume lisinopril/HCTZ 4. Major depression. Continue home wellbutrin
[2021-08-26 08:51] VITALS: BP 125/72; PULSE 80
[2021-08-26] MEDS ORDERED: LISINOPRIL-HCTZ 20-25 MG 1 EACH TAB PO SCH (09:00)
[2021-08-26] MEDS: METOPROLOL SUCCINATE (ER) 100 MG TAB.ER.24H PO SCH (10:02)
[2021-08-26 11:37] LABS: Glucose,Whole Blood 118 mg/dL (75-99)
--- NOTE | 2021-08-26 12:10 | P.PN ---
Subjective Progress Note Date: 08/26/21 Principal diagnosis: Status post right total hip arthroplasty Patient evaluated at bedside, his is present also. He has ambulated a lot better today with therapy. His pain is well-controlled. Currently denies headaches, lightheadedness, chest pain or shortness of breath. Objective - Vital Signs Vital signs: Vital Signs Temp 98.8 F 08/26/21 08:00 Pulse 80 08/26/21 08:00 Resp 16 08/26/21 08:00 BP 125/72 08/26/21 08:00 Pulse Ox 95 08/26/21 08:00 Intake & Output 08/25/21 08/26/21 08/26/21 18:59 06:59 18:59 Intake Total 750 Balance 750 Intake: Intake, IV Titration 100 Amount ceFAZolin 3 gm In Sodium 100 Chloride 0.9% 100 ml @ 200 mls/hr IVPB Q8HR [facility] Rx#:[id number] Oral 650 Other: # Voids 3 2 - Exam Right lower extremity: Incision is clean, dry, and intact. The exofin fusion tape is in good condition. There is minimal soft tissue swelling and ecchymosis surrounding the medial and lateral aspects of the incision. Calf is soft, no tenderness with palpation. Plantar flexion, dorsiflexion, EHL, FHL are intact. Sensory exam to light touch throughout the extremity is intact, dorsal pedis pulses 2+. - Labs CBC & Chem 7: 08/25/21 04:37 Labs: Abnormal Lab Results - Last 24 Hours (Table) 08/25/21 08/25/21 08/26/21 Range/Units 16:48 20:36 07:00 POC Glucose (mg/dL) 135 H 144 H 183 H (75-99) mg/dL 08/26/21 Range/Units 11:36 POC Glucose (mg/dL) 118 H (75-99) mg/dL Assessment and Plan Assessment: Postoperative day #2 status post right total hip arthroplasty, lateral approach Plan: Pain controlled, plan for discharge home on [place] 7.5 mg/325 mg DVT prophylaxis, [place] 2.5 mg twice a day for 2 weeks Wound care instructions discussed, Vistaril with icing and elevating along show ering instructions Home health care for discharge Medical recommendations Discharge home today Time with Patient: Less than 30
--- NOTE | 2021-08-26 12:11 | P.PN ---
Subjective Progress Note Date: 08/26/21 Tushar Thacker is a 56 yo M with PMH of T2DM, HTN, HLD, OA who is admitted for scheduled R CHEL. He is POD#1 today, reports moderate pain with ambulation, overall doing well today. Denies chest pain, shortness of breath, palpitations. BP is controlled today. He is ambulating with PT. 08/26/2021 sitting up in chair, pain controlled. Yesterday was unable to perform stairs with PT, discharge held. Reattempt today. Afebrile, T-max 100.3, ua with micro ordered. Recent WBC 13.99. Denies cough, congestion or shortness of breath. Maintaining O2 sats in the 90s on room air. Denies difficulty urinating, no burning, no flank pain. Denies chest pain, palpitations. Objective - Vital Signs Vital signs: Vital Signs Temp 98.8 F 08/26/21 08:00 Pulse 80 08/26/21 08:00 Resp 16 08/26/21 08:00 BP 125/72 08/26/21 08:00 Pulse Ox 95 08/26/21 08:00 Intake & Output 08/25/21 08/26/21 08/26/21 18:59 06:59 18:59 Intake Total 750 Balance 750 Intake: Intake, IV Titration 100 Amount ceFAZolin 3 gm In Sodium 100 Chloride 0.9% 100 ml @ 200 mls/hr IVPB Q8HR [facility] Rx#:[id number] Oral 650 Other: # Voids 3 2 - Exam General: well developed, well nourished, NAD HEENT: NC/AT, mmm Neck: supple, no JVD CV: RRR, no murmur Lungs: normal effort, clear throughout Abd: soft, nontender, non distended,+bs Skin: warm and dry. - Labs CBC & Chem 7: 08/25/21 04:37 Labs: Abnormal Lab Results - Last 24 Hours (Table) 08/25/21 08/25/21 08/26/21 Range/Units 16:48 20:36 07:00 POC Glucose (mg/dL) 135 H 144 H 183 H (75-99) mg/dL 08/26/21 Range/Units 11:36 POC Glucose (mg/dL) 118 H (75-99) mg/dL Assessment and Plan Assessment: 1. R hip OA s/p R CHEL. 2. T2DM. 3. HTN. 4. Major depression. Plan: Continue on current medication regime ,monitoring and symptomatic treatment. Isolated fever, UA with micro-pending, results to PCP. Reattempting stairs with PT today. Discharge planning in progress. Pain management and DVT prophylaxis as per primary. Follow-up with PCP in one week. The impression and plan of care has been dictated as directed. : I performed a history and examination of this patient, discussed the same with the dictator. I agree with the dictator's note ,documented as a scribe. Any additional findings or plans will be noted.
[2021-08-26 12:28] LABS: Appearance,Urine Clear (Clear); Bilirubin,Urine Negative (Negative); Blood,Urine Negative (Negative); Color,Urine Yellow; Glucose,Urine (UA) Trace (Negative); Ketones,Urine Negative (Negative); Leukocyte Esterase,Urine Negative (Negative); Nitrite,Urine Negative (Negative); Protein,Urine Trace (Negative); Specific Gravity,Urine 1.021 (1.001-1.035)
== END 2021-08-26 13:10 | disposition home or self-care (01) ==
LOC: OR 12:45 → 4SSUR 17:44 → OR 08-25 15:36
PROVIDERS: ADMIT Orthopaedic Surgery; ATTEND Orthopaedic Surgery
DX: M16.11 Unilateral primary osteoarthritis, right hip (principal); I10 Essential (primary) hypertension; E11.9 Type 2 diabetes mellitus without complications; E78.5 Hyperlipidemia, unspecified; G47.33 Obstructive sleep apnea (adult) (pediatric); Z91.19 Patient's noncompliance with other medical treatment and regimen; K21.9 Gastro-esophageal reflux disease without esophagitis; F32.9 Major depressive disorder, single episode, unspecified; E66.9 Obesity, unspecified; Z68.41 Body mass index [BMI] 40.0-44.9, adult; Z79.82 Long term (current) use of aspirin; Z79.84 Long term (current) use of oral hypoglycemic drugs; Z79.899 Other long term (current) drug therapy; Z87.442 Personal history of urinary calculi; Z87.09 Personal history of other diseases of the respiratory system; Z90.49 Acquired absence of other specified parts of digestive tract; Z98.890 Other specified postprocedural states; Z82.49 Family history of ischemic heart disease and other diseases of the circulatory system
CPT/HCPCS: 27130; 97116; 97162; 97535; 97166; 86900; 86901; 85025; 86850; 81003; 88300; 73501; G0378 ×2; C1776; J2250; S0106 ×2; J0690 ×2; J2405; J1650 ×2; J3010; J1170 ×3; J2704

== ENCOUNTER 2022-01-01 18:44 | Emergency (ER) | payer OTHER ==
[2022-01-01 19:07] VITALS: TEMP 98.5
--- NOTE | 2022-01-01 19:13 | ED ---
General Adult HPI - General Chief complaint: Chest Pain Stated complaint: Chest pain/PATRICE Time Seen by Provider: 01/01/22 18:54 Source: patient Mode of arrival: ambulatory Limitations: no limitations - History of Present Illness Initial comments: Dictation was produced using Cine[employer] dictation software. please excuse any grammatical, word or spelling errors. Chief Complaint: 56-year-old male presents to the emergency department for chest pressure, cough and shortness of breath History of Present Illness: Is 56-year-old male for the last 7 days he's been complaining of chest pressure, shortness of breath and cough. Patient states that his cough is like his normal chronic bronchitis however slightly worse. He's been working with his primary care doctor upon trying to resolve his coughing symptoms. Patient has history of diabetes dyslipidemia hypertension and sleep apnea. His complaint of chest pressure to his lower substernal area. He states sometimes worse when he coughs. Nonradiating. No associated diaphoresis. Denies any sore throat and runny nose. Denies any constitutional symptoms. He is vaccinated for COVID-19. Last year patient had a coronary cardiac calf after having a stress test. The cath was completely normal suggesting that he had a false-positive cardiac stress test. The ROS documented in this emergency department record has been reviewed and confirmed by me. Those systems with pertinent positive or negative responses have been documented in the HPI. All other systems are other negative and/or noncontributory. PHYSICAL EXAM: General Impression: Alert and oriented x3, not in acute distress HEENT: Normocephalic atraumatic, extra-ocular movements intact, pupils equal and reactive to light bilaterally, mucous membranes moist. Cardiovascular: Heart regular rate and rhythm Chest: Able to complete full sentences, no retractions, no tachypnea, lungs clear to auscultation bilaterally Abdomen: abdomen soft, non-tender, non-distended, no organomegaly Musculoskeletal: Pulses present and equal in all extremities, no peripheral edema Motor: no focal deficits noted Neurological: CN II-XII grossly intact, no focal motor or sensory deficits noted Skin: Intact with no visualized rashes Psych: Normal affect and mood ED course: 56-year-old male with multiple comorbidities presents to emergency department for atypical chest pain typical features, shortness of breath and cough. Signs upon arrival are within acceptable limits. Patient not hypoxic. Is not tachypneic. He does appear to be very mildly dyspneic however able to complete full sentences. Lung auscultation is unremarkable. Chart review was performed showing that patient had a cardiac catheterization around this time last year was found to be completely clean cath Return evaluation obtained. CBC unremarkable. D-dimer is negative. Metabolic panel is negative. Troponin is negative. Chest x-ray is nonacute. Patient reevaluated at bedside at 8:40 PM found to be in stable medical condition. It is recommended the patient to wait to have a second troponin drawn to increase her confidence that his chest pain is not associated with ACS. Patient refuses and would prefer to be discharge. Patient understands the risk and will return to the emergency department if he has any worsening symptoms. Patient given referral to pulmonology and prescription for Roberto Joiner. EKG interpretation: Ventricular rate 81, sinus rhythm, ID interval 175, QS 113, QTc 43. No ID prolongation, no QTC prolongation, no ST or T-wave changes noted. EKG compared to 01/03/2021 showing no changes. Overall, this EKG is unrema rkable - Related Data Home Medications Medication Instructions Recorded Confirmed Montelukast [Singulair] 10 mg PO HS 01/03/21 08/20/21 Pantoprazole Sodium [Protonix] 40 mg PO DAILY 01/03/21 08/20/21 Potassium Chloride ER [K-Dur 10] 10 meq PO DAILY 01/03/21 08/20/21 Tamsulosin [Flomax] 0.4 mg PO BID 01/03/21 08/20/21 buPROPion HCL [Wellbutrin SR] 150 mg PO DAILY 01/03/21 08/20/21 metFORMIN HCL [Glucophage] 1,000 mg PO BID 01/03/21 08/20/21 Aspirin [Vazalore] 81 mg PO DAILY 08/20/21 08/20/21 Lisinopril-Hctz 20-25 mg 1 tab PO HS 08/20/21 08/20/21 [Zestoretic 20-25] rOPINIRole HCL [Requip] 0.25 mg PO HS 08/20/21 08/24/21 tadalafiL [Cialis] 5 mg PO DAILY 08/20/21 08/24/21 Previous Rx's Medication Instructions Recorded Atorvastatin [Lipitor] 40 mg PO HS #30 tab 01/04/21 Metoprolol Succinate (ER) [Toprol 200 mg PO DAILY #60 tab.er.24h 01/04/21 XL] Apixaban [Eliquis] 2.5 mg PO BID #60 tab 08/25/21 Docusate [Colace] 100 mg PO DAILY #30 capsule 08/25/21 HYDROcodone/APAP 7.5-325MG [[place] 1 - 2 each PO Q6HR PRN #36 tab 08/25/21 7.5] Benzonatate [Tessalon Perles] 100 mg PO TID PRN #24 capsule 01/01/22 Allergies Allergy/AdvReac Type Severity Reaction Status Date / Time No Known Allergies Allergy Verified 01/01/22 19:07 Review of Systems ROS Statement: Those systems with pertinent positive or pertinent negative responses have been documented in the HPI. ROS Other: All systems not noted in ROS Statement are negative. Past Medical History Past Medical History: Diabetes Mellitus, GERD/Reflux, Hyperlipidemia, Hypertension, Sleep Apnea/CPAP/BIPAP Additional Past Medical History / Comment(s): CHRONIC BRONCHITIS, C PAP MACHINE- NOT USING , HX OF KIDNEY STONE. History of Any Multi-Drug Resistant Organisms: None Reported Past Surgical History: Appendectomy, Heart Catheterization, Tonsillectomy Additional Past Surgical History / Comment(s): KIDNEY STONE REMOVED. FATTY LIPOMA REMOVED FROM LEFT WRIST AREA, R Hip replacement Past Anesthesia/Blood Transfusion Reactions: Postoperative Nausea & Vomiting (PONV) Past Psychological History: Depression Smoking Status: Never smoker Past Alcohol Use History: None Reported Past Drug Use History: None Reported - Past Family History Mother Family Medical History: Deep Vein Thrombosis (DVT) General Exam Limitations: no limitations Course Vital Signs 01/01/22 19:00 Temperature 98.5 F Pulse Rate 81 Respiratory 22 Rate Blood Pressure 157/97 O2 Sat by Pulse 97 Oximetry Medical Decision Making - Lab Data Result diagrams: 01/01/22 19:23 01/01/22 19:23 Lab Results 01/01/22 01/01/22 01/01/22 Range/Units 19:23 19:23 19:23 WBC 11.9 H (3.8-10.6) k/uL RBC 5.04 (4.30-5.90) m/uL Hgb 14.5 (13.0-17.5) gm/dL Hct 44.2 (39.0-53.0) % MCV 87.6 (80.0-100.0) fL MCH 28.8 (25.0-35.0) pg MCHC 32.8 (31.0-37.0) g/dL RDW 12.8 (11.5-15.5) % Plt Count 248 (150-450) k/uL MPV 7.9 Neutrophils % 66 % Lymphocytes % 22 % Monocytes % 7 % Eosinophils % 3 % Basophils % 1 % Neutrophils # 7.8 H (1.3-7.7) k/uL Lymphocytes # 2.6 (1.0-4.8) k/uL Monocytes # 0.9 (0-1.0) k/uL Eosinophils # 0.3 (0-0.7) k/uL Basophils # 0.1 (0-0.2) k/uL D-Dimer 0.39 (<0.60) mg/L FEU Sodium 139 (137-145) mmol/L Potassium 3.9 (3.5-5.1) mmol/L Chloride 105 (98-107) mmol/L Carbon Dioxide 29 (22-30) mmol/L Anion Gap 5 mmol/L BUN 19 (9-20) mg/dL Creatinine 1.02 (0.66-1.25) mg/dL Est GFR (CKD-EPI)AfAm >90 (>60 ml/min/1.73 sqM) Est GFR (CKD-EPI)NonAf 83 (>60 ml/min/1.73 sqM) Glucose 126 H (74-99) mg/dL Calcium 10.0 (8.4-10.2) mg/dL Total Bilirubin 0.5 (0.2-1.3) mg/dL AST 22 (17-59) U/L ALT 21 (4-49) U/L Alkaline Phosphatase 110 (38-126) U/L Troponin I (0.000-0.034) ng/mL NT-Pro-B Natriuret Pep pg/mL Total Protein 6.0 L (6.3-8.2) g/dL Albumin 3.8 (3.5-5.0) g/dL 01/01/22 01/01/22 Range/Units 19:23 19:23 WBC (3.8-10.6) k/uL RBC (4.30-5.90) m/uL Hgb (13.0-17.5) gm/dL Hct (39.0-53.0) % MCV (80.0-100.0) fL MCH (25.0-35.0) pg MCHC (31.0-37.0) g/dL RDW (11.5-15.5) % Plt Count (150-450) k/uL MPV Neutrophils % % Lymphocytes % % Monocytes % % Eosinophils % % Basophils % % Neutrophils # (1.3-7.7) k/uL Lymphocytes # (1.0-4.8) k/uL Monocytes # (0-1.0) k/uL Eosinophils # (0-0.7) k/uL Basophils # (0-0.2) k/uL D-Dimer (<0.60) mg/L FEU Sodium (137-145) mmol/L Potassium (3.5-5.1) mmol/L Chloride (98-107) mmol/L Carbon Dioxide (22-30) mmol/L Anion Gap mmol/L BUN (9-20) mg/dL Creatinine (0.66-1.25) mg/dL Est GFR (CKD-EPI)AfAm (>60 ml/min/1.73 sqM) Est GFR (CKD-EPI)NonAf (>60 ml/min/1.73 sqM) Glucose (74-99) mg/dL Calcium (8.4-10.2) mg/dL Total Bilirubin (0.2-1.3) mg/dL AST (17-59) U/L ALT (4-49) U/L Alkaline Phosphatase (38-126) U/L Troponin I <0.012 (0.000-0.034) ng/mL NT-Pro-B Natriuret Pep 241 pg/mL Total Protein (6.3-8.2) g/dL Albumin (3.5-5.0) g/dL Disposition Clinical Impression: Chest pain, Cough Disposition: HOME SELF-CARE Condition: Fair Instructions (If sedation given, give patient instructions): Chest Pain (ED), Chronic Cough (ED) Prescriptions: Benzonatate [Tessalon Perles] 100 mg PO TID PRN #24 capsule PRN Reason: Cough Is patient prescribed a controlled substance at d/c from ED?: No Referrals: Jassi,Jadyn, DO [Primary Care Provider] - 1-2 days Jah Stevens MD [STAFF PHYSICIAN] - 1-2 days
[2022-01-01 19:30] LABS: Basophils # (A) 0.1 k/uL (0-0.2); Basophils % (A) 1 %; Eosinophils # (A) 0.3 k/uL (0-0.7); Eosinophils % (A) 3 %; HCT 44.2 % (39.0-53.0); HGB 14.5 gm/dL (13.0-17.5); Lymphocytes # (A) 2.6 k/uL (1.0-4.8); Lymphocytes % (A) 22 %; MCH 28.8 pg (25.0-35.0); MCHC 32.8 g/dL (31.0-37.0); MCV 87.6 fL (80.0-100.0); Mean Platelet Volume 7.9; Monocytes # (A) 0.9 k/uL (0-1.0); Monocytes % (A) 7 %; Neutrophils # (A) 7.8 k/uL (1.3-7.7); Neutrophils % (A) 66 %; Platelet Count 248 k/uL (150-450); RBC 5.04 m/uL (4.30-5.90); RDW 12.8 % (11.5-15.5); WBC 11.9 k/uL (3.8-10.6)
--- NOTE | 2022-01-01 19:44 | XR ---
EXAMINATION TYPE: XR chest 2V DATE OF EXAM: 01/01/2022 COMPARISON: 01/03/2021 HISTORY: Short of breath TECHNIQUE: FINDINGS: Heart and mediastinum are normal. Lungs are clear. Diaphragm is normal. Bony thorax is inta ct. The pulmonary vascularity is normal. There are chest leads. IMPRESSION: No active cardiac or pulmonary disease. Normal heart. No change. IMPRESSION:
[2022-01-01 19:49] LABS: ALT 21 U/L (4-49); AST 22 U/L (17-59); African American GFR (CKD) >90 (>60 ml/min/1.73 sqM); Albumin 3.8 g/dL (3.5-5.0); Alkaline Phosphatase 110 U/L (38-126); Anion Gap 5 mmol/L; Blood Urea Nitrogen 19 mg/dL (9-20); Carbon Dioxide 29 mmol/L (22-30); Chloride 105 mmol/L (98-107); Glucose 126 mg/dL (74-99); Non-African American GFR(CKD) 83 (>60 ml/min/1.73 sqM); Potassium 3.9 mmol/L (3.5-5.1); Sodium 139 mmol/L (137-145); Total Bilirubin 0.5 mg/dL (0.2-1.3)
[2022-01-01 20:44] VITALS: BP 140/85; PULSE 78; RESP 21
== END 2022-01-01 20:53 | disposition home or self-care (01) ==
LOC: EC 18:44
DX: R07.89 Other chest pain (principal); R05.9 Cough, unspecified; R06.02 Shortness of breath; E11.9 Type 2 diabetes mellitus without complications; K21.9 Gastro-esophageal reflux disease without esophagitis; Z79.899 Other long term (current) drug therapy; Z79.82 Long term (current) use of aspirin; Z79.84 Long term (current) use of oral hypoglycemic drugs; Z20.822 Contact with and (suspected) exposure to COVID-19
CPT/HCPCS: 36415; 71046; 80053; 83880; 84484; 85025; 85379; 87636; 93005; 99285

== ENCOUNTER → 2022-01-20 | Outpatient (CLI) | payer OTHER ==
--- NOTE | 2022-01-20 23:05 | CT ---
EXAMINATION TYPE: CT chest wo con CT DLP: 769.4 mGycm, Automated exposure control for dose reduction was used. DATE OF EXAM: 01/20/2022 6:55 PM COMPARISON : chest radiograph 01/01/2022. CLINICAL INDICATION:Male, 56 years old with history of R06.00 R05.3 DYSPNEA, UNSPECIFIED. Motion hugh fact from the rotator cuff TECHNIQUE: Multiple axial images were obtained through the chest. Sagittal and coronal reformats were created for review. Contrast used: none. Oral contrast used: none. FINDINGS: LUNGS/ PLEURA: No evidence of focal consolidation, pneumothorax or pleural effusion. AIRWAY: Patent and unremarkable. HEART: The heart is mildly enlarged for size. There is moderate coronary artery atherosclerosis. MEDIASTINUM: No gross evidence of adenopathy. VASCULATURE: No aortic aneurysm. MUSCULOSKELETAL: No acute osseous abnormalities, multilevel disc degeneration changes. SOFT TISSUES/LYMPH NODES: Unremarkable. LOWER NECK: No significant findings. UPPER ABDOMEN: No significant findings. IMPRESSION: No evidence for acute intrathoracic process.
== END | disposition home or self-care (01) ==
LOC: RADCTMAIN 18:36
PROVIDERS: ATTEND Family Medicine
DX: R06.00 Dyspnea, unspecified (principal); R05.3 Chronic cough
CPT/HCPCS: 71250

== ENCOUNTER 2022-12-02 19:17 | Emergency (ER) | payer OTHER ==
[2022-12-02 19:49] VITALS: TEMP 98.7
[2022-12-02] MEDS ORDERED: KETOROLAC 15 MG/ML 1 ML VIAL IM STA (20:00)
--- NOTE | 2022-12-02 20:01 | ED ---
General Adult HPI - General Chief complaint: Extremity Problem,Nontraumatic Stated complaint: right hip pain Time Seen by Provider: 12/02/22 19:51 Source: patient, RN notes reviewed Mode of arrival: ambulatory - History of Present Illness Initial comments: 57-year-old male with no significant past medical history presents to the emergency department with a chief complaint of right hip pain. Patient reports worsening Pain for the last 2-3 days. He reports that he is recently started walking 2 miles a day. He denies any recent, injury. He denies any numbness, tingling, weakness in the extremity. He has not taken anything for his symptoms. He does report having a hip replacement to the right hip performed by Dr. Alexis approximately 1 year ago. - Related Data Home Medications Medication Instructions Recorded Confirmed Montelukast [Singulair] 10 mg PO HS 01/03/21 08/20/21 Pantoprazole Sodium [Protonix] 40 mg PO DAILY 01/03/21 08/20/21 Potassium Chloride ER [K-Dur 10] 10 meq PO DAILY 01/03/21 08/20/21 Tamsulosin [Flomax] 0.4 mg PO BID 01/03/21 08/20/21 buPROPion HCL [Wellbutrin SR] 150 mg PO DAILY 01/03/21 08/20/21 metFORMIN HCL [Glucophage] 1,000 mg PO BID 01/03/21 08/20/21 Aspirin [Vazalore] 81 mg PO DAILY 08/20/21 08/20/21 Lisinopril-Hctz 20-25 mg 1 tab PO HS 08/20/21 08/20/21 [Zestoretic 20-25] rOPINIRole HCL [Requip] 0.25 mg PO HS 08/20/21 08/24/21 tadalafiL [Cialis] 5 mg PO DAILY 08/20/21 08/24/21 Previous Rx's Medication Instructions Recorded Atorvastatin [Lipitor] 40 mg PO HS #30 tab 01/04/21 Metoprolol Succinate (ER) [Toprol 200 mg PO DAILY #60 tab.er.24h 01/04/21 XL] Apixaban [Eliquis] 2.5 mg PO BID #60 tab 08/25/21 Docusate [Colace] 100 mg PO DAILY #30 capsule 03/09/22 HYDROcodone/APAP 7.5-325MG [[place] 1 - 2 each PO Q6HR PRN #36 tab 08/25/21 7.5] Benzonatate [Tessalon Perles] 100 mg PO TID PRN #24 capsule 01/01/22 Allergies Allergy/AdvReac Type Severity Reaction Status Date / Time No Known Allergies Allergy Verified 12/02/22 19:49 Review of Systems ROS Statement: Those systems with pertinent positive or pertinent negative responses have been documented in the HPI. ROS Other: All systems not noted in ROS Statement are negative. Past Medical History Past Medical History: Asthma, Diabetes Mellitus, GERD/Reflux, Hyperlipidemia, Hypertension, Sleep Apnea/CPAP/BIPAP Additional Past Medical History / Comment(s): CHRONIC BRONCHITIS, C PAP MACHINE- NOT USING , HX OF KIDNEY STONE. History of Any Multi-Drug Resistant Organisms: None Reported Past Surgical History: Appendectomy, Heart Catheterization, Tonsillectomy Additional Past Surgical History / Comment(s): KIDNEY STONE REMOVED. FATTY LIPOMA REMOVED FROM LEFT WRIST AREA, R Hip replacement Past Anesthesia/Blood Transfusion Reactions: Postoperative Nausea & Vomiting (PONV) Past Psychological History: Depression Smoking Status: Never smoker Past Alcohol Use History: None Reported Past Drug Use History: None Reported - Past Family History Mother Family Medical History: Deep Vein Thrombosis (DVT) General Exam - General Exam Comments Initial Comments: General: Alert, in no acute distress Head: atraumatic normocephalic. Eyes PERRL, EOMI intact, mucous membranes moist Respiratory: Lungs clear to auscultation bilaterally Cardiovascular: Rate regular rate and rhythm Abdominal: Soft without guarding or rebound Extremities: Normal inspection with full range of motion and normal capillary refill Neuroogic: alert and oriented 3, CN II-XII intact, able to ambulate with steady gait Skin: warm dry and intact with normal color Course Vital Signs 12/02/22 12/02/22 19:45 21:25 Temperature 98.7 F Pulse Rate 100 90 Respiratory 16 20 Rate Blood Pressure 145/91 129/78 O2 Sat by Pulse 96 94 L Oximetry Medical Decision Making - Medical Decision Making Was pt. sent in by a medical professional or institution (, PA, C4 PLANNER, urgent care, hospital, or custodial...) When possible be specific @ -[No] Did you speak to anyone other than the patient for history (EMS, parent, family, police, friend...)? What history was obtained from this source @ -[No] Did you review nursing and triage notes (agree or disagree)? Why? @ -[I reviewed and agree with nursing and triage notes] Were old charts reviewed (outside hosp., previous admission, EMS record, old EKG, old radiological studies, urgent care reports/EKG's, custodial records)? Report findings @ -[No old charts were reviewed] Differential Diagnosis (chest pain, altered mental status, abdominal pain women, abdominal pain men, vaginal bleeding, weakness, fever, dyspnea, syncope, headache, dizziness, GI bleed, back pain, seizure, CVA, palpatations, mental health, musculoskeletal)? @ -[not applicable] EKG interpreted by me (3pts min.). @ -[As above] X-rays interpreted by me (1pt min.). @ -X-ray negative for any evidence of fracture dislocation. Hardware remains intact. CT interpreted by me (1pt min.). @ -[None done] U/S interpreted by me (1pt. min.). @ -[None done] What testing was considered but not performed or refused? (CT, X-rays, U/S, labs)? Why? @ -[None] What meds were considered but not given or refused? Why? @ -[None] Did you discuss the management of the patient with other professionals (nena garcia i.eDorina Das, PA, C4 PLANNER, lab, RT, psych nurse, social media sr strategy manager, police pilot, teacher, airfield engineer officer, case filler)? Give summary @ -[No] Was smoking cessation discussed for >3mins.? @ -[No] Was critical care preformed (if so, how long)? @ -[No] Were there social determinants of health that impacted care today? How? (Homelessness, low income, unemployed, alcoholism, drug addiction, transportation, low edu. Level, literacy, decrease access to med. care, senior care, rehab)? @ -[No] Was there de-escalation of care discussed even if they declined (Discuss DNR or withdrawal of care, Hospice)? DNR status @ -[No] What co-morbidities impacted this encounter? (DM, HTN, Smoking, COPD, CAD, Cancer, CVA, ARF, Chemo, Hep., AIDS, mental health diagnosis, sleep apnea, morbid obesity)? @ -[None] Was patient admitted / discharged? Hospital course, mention meds given and route, prescriptions, significant lab abnormalities, going to OR and other pertinent info. @ -@Discharged. 57-year-old male who presents the emergency department with right hip pain. Patient had a thorough history and physical exam performed on the ED. Physical exam is essentially unremarkable heart rate regular rate and rhythm, lungs clear to auscultation bilaterally, abdomen soft and non-tender. Patient able to ambulate with a steady gait. Patient had lab work and imaging performed which was negative. She was given toradol with symptomatic relief. I discussed the results in detail with the patient verbalized understanding and all questions were addressed. Return precautions were discussed at length. Patient discharged in stable condition. Case discussed with Dr. Mccarty [facility] who agrees with plan of care. Undiagnosed new problem with uncertain prognosis? @ -[No] Drug Therapy requiring intensive monitoring for toxicity (Heparin, Nitro, Insulin, Cardizem)? @ -[No] Were any procedures done? @ -[No] Diagnosis/symptom? @ -Right hip pain Acute, or Chronic, or Acute on Chronic? @ -Acute Uncomplicated (without systemic symptoms) or Complicated (systemic symptoms)? @ -uncomplicated Side effects of treatment? @ -[No] Exacerbation, Progression, or Severe Exacerbation? @ -[No] Poses a threat to life or bodily function? How? (Chest pain, [place], [place], pneumonia, PE, COPD, DKA, ARF, appy, cholecystitis, CVA, Diverticulitis, Homicidal, Suicidal, threat to staff... and all critical care pts) @ -low likelihood Disposition Clinical Impression: Right hip pain Disposition: HOME SELF-CARE Condition: Stable Instructions (If sedation given, give patient instructions): Hip Sprain (ED) Additional Instructions: Please return to the nearest emergency department if symptoms worsen or persist Is patient prescribed a controlled substance at d/c from ED?: No Referrals: Jadyn Keene DO [Primary Care Provider] - 1-2 days Jc Aquino MD [STAFF PHYSICIAN] - 1-2 days Time of Disposition: 21:16
[2022-12-02] MEDS ORDERED: HYDROcodone/APAP 5-325MG 1 EACH TAB PO STA (20:44)
--- NOTE | 2022-12-02 20:48 | XR ---
EXAMINATION TYPE: XR Hip Complete RT DATE OF EXAM: 12/02/2022 8:25 PM INDICATION: Patient age:Male; 57 years old; Reason for study: Hip pain; COMPARISON: None. TECHNIQUE: The right hip was examined in the frontal and lateral projections FINDINGS: Post arthroplasty changes, hardware is intact, alignment is appropriate. No evidence of fra cture. No evidence of any acute osseous pathology or joint dislocation. Heterotrophic desiccation see n on the right hip. IMPRESSION: Hip arthroplasty with hardware intact and in appropriate alignment. No acute fracture. Heterotrophic calcifications around the right hip likely postsurgical.
[2022-12-02] MEDS ORDERED: ACET/COD 300 MG/30 MG STARTER PACK 6 TAB BTL PO STA (21:17)
[2022-12-02 21:26] VITALS: BP 129/78; PULSE 90; RESP 20
== END 2022-12-02 21:26 | disposition home or self-care (01) ==
LOC: EC 19:17
DX: M25.551 Pain in right hip (principal); E11.9 Type 2 diabetes mellitus without complications; I10 Essential (primary) hypertension; J45.909 Unspecified asthma, uncomplicated; K21.9 Gastro-esophageal reflux disease without esophagitis; F32.A Depression, unspecified; Z79.82 Long term (current) use of aspirin; Z79.84 Long term (current) use of oral hypoglycemic drugs; Z79.899 Other long term (current) drug therapy; Z96.641 Presence of right artificial hip joint
CPT/HCPCS: 73502; 99283; 96372; J1885

== ENCOUNTER 2024-05-01 17:41 | Observation (INO) | payer OTHER ==
--- NOTE | 2024-05-01 18:25 | ED ---
General Adult HPI - General Chief complaint: Shortness of Breath Stated complaint: heart issues/dizzy Time Seen by Provider: 05/01/24 17:49 Source: patient Mode of arrival: wheelchair Limitations: no limitations - History of Present Illness Initial comments: Dictation was produced using [employer] dictation software. please excuse any grammatical, word or spelling errors. Chief Complaint: 59-year-old male presents to the emergency department for tachycardia shortness of breath and angina History of Present Illness: Patient 59-year-old male he was at his primary care physician's office for routine appointment. Patient has had persistent tachycardia for the last several visits. He was finally decided by patient and primary care doctor that he should come to the emergency room. He is he has associated shortness of breath. Patient has chronic dyspnea secondary to chronic inflammation from COVID-19 several months ago. Patient also complains of some mild chest pain. Patient's pain is nonradiating on associated with diaphoresis or nausea. The ROS documented in this emergency department record has been reviewed and confirmed by me. Those systems with pertinent positive or negative responses have been documented in the HPI. All other systems are other negative and/or noncontributory. - Related Data Home Medications Medication Instructions Recorded Confirmed Montelukast [Singulair] 10 mg PO HS 01/03/21 08/20/21 Pantoprazole Sodium [Protonix] 40 mg PO DAILY 01/03/21 08/20/21 Potassium Chloride ER [K-Dur 10] 10 meq PO DAILY 01/03/21 08/20/21 Tamsulosin [Flomax] 0.4 mg PO BID 01/03/21 08/20/21 buPROPion HCL [Wellbutrin SR] 150 mg PO DAILY 01/03/21 08/20/21 metFORMIN HCL [Glucophage] 1,000 mg PO BID 01/03/21 08/20/21 Aspirin [Vazalore] 81 mg PO DAILY 08/20/21 08/20/21 Lisinopril-Hctz 20-25 mg 1 tab PO HS 08/20/21 08/20/21 [Zestoretic 20-25] rOPINIRole HCL [Requip] 0.25 mg PO HS 08/20/21 08/24/21 tadalafiL [Cialis] 5 mg PO DAILY 08/20/21 08/24/21 Previous Rx's Medication Instructions Recorded Atorvastatin [Lipitor] 40 mg PO HS #30 tab 01/04/21 Metoprolol Succinate (ER) [Toprol 200 mg PO DAILY #60 tab.er.24h 01/04/21 XL] Apixaban [Eliquis] 2.5 mg PO BID #60 tab 08/25/21 Docusate [Colace] 100 mg PO DAILY #30 capsule 08/25/21 HYDROcodone/APAP 7.5-325MG [Sibley 1 - 2 each PO Q6HR PRN #36 tab 08/25/21 7.5] Benzonatate [Tessalon Perles] 100 mg PO TID PRN #24 capsule 01/01/22 Allergies Allergy/AdvReac Type Severity Reaction Status Date / Time No Known Allergies Allergy Verified 05/01/24 17:47 Review of Systems ROS Statement: Those systems with pertinent positive or pertinent negative responses have been documented in the HPI. ROS Other: All systems not noted in ROS Statement are negative. Past Medical History Past Medical History: Asthma, Diabetes Mellitus, GERD/Reflux, Hyperlipidemia, Hypertension, Sleep Apnea/CPAP/BIPAP Additional Past Medical History / Comment(s): CHRONIC BRONCHITIS, C PAP MACHINE- NOT USING , HX OF KIDNEY STONE. History of Any Multi-Drug Resistant Organisms: None Reported Past Surgical History: Appendectomy, Heart Catheterization, Tonsillectomy Additional Past Surgical History / Comment(s): KIDNEY STONE REMOVED. FATTY L IPOMA REMOVED FROM LEFT WRIST AREA, R Hip replacement Past Anesthesia/Blood Transfusion Reactions: Postoperative Nausea & Vomiting (PONV) Past Psychological History: Depression Smoking Status: Never smoker Past Alcohol Use History: None Reported Past Drug Use History: None Reported - Past Family History Mother Family Medical History: Deep Vein Thrombosis (DVT) General Exam - General Exam Comments Initial Comments: PHYSICAL EXAM: General Impression: Alert and oriented x3, not in acute distress HEENT: Normocephalic atraumatic, extra-ocular movements intact, pupils equal and reactive to light bilaterally, mucous membranes moist. Cardiovascular: Heart regular rate and rhythm Chest: Able to complete full sentences, no retractions, no tachypnea Abdomen: abdomen soft, non-tender, non-distended, no organomegaly Musculoskeletal: Pulses present and equal in all extremities, no peripheral edema Motor: no focal deficits noted Neurological: CN II-XII grossly intact, no focal motor or sensory deficits noted Skin: Intact with no visualized rashes Psych: Normal affect and mood Limitations: no limitations Course Vital Signs 05/01/24 05/01/24 05/01/24 17:43 18:31 19:38 Temperature 98.2 F Pulse Rate 125 H 111 H 100 Respiratory 24 20 16 Rate Blood Pressure 139/92 143/93 113/83 O2 Sat by Pulse 97 95 95 Oximetry EKG Findings - EKG Comments: EKG Findings:: My EKG interpretation: Ventricular rate 101, sinus tachycardia,. 173, QRS 109, QTc 4 7. No HI prolongation, no QTC prolongation, no ST or T-wave changes noted. EKG compared to January 01, 2022 showing no changes. Overall, this EKG is unremarkable Medical Decision Making - Medical Decision Making Was pt. sent in by a medical professional or institution (, PA, COMMISSIONED SECURITY OFFICER, urgent care, hospital, or long-term...) When possible be specific @ -No Did you speak to anyone other than the patient for history (EMS, parent, family, police, friend...)? What history was obtained from this source @ -No Did you review nursing and triage notes (agree or disagree)? Why? @ -I reviewed and agree with nursing and triage notes Were old charts reviewed (outside hosp., previous admission, EMS record, old EKG, old radiological studies, urgent care reports/EKG's, long-term records)? Report findings @ -No old charts were reviewed Differential Diagnosis (chest pain, altered mental status, abdominal pain women, abdominal pain men, vaginal bleeding, musculoskeletal, weakness, fever, dyspnea, syncope, headache, dizziness, GI bleed, back pain, seizure, CVA, palpatations, mental health)? @ -Differential Chest Pain: Stable Angina, Unstable Angina, STEMI, NSTEMI Aortic Dissection, Pneumothorax, Musculoskeletal, Esophageal Spasm GERD, Cholecystitis, Pancreatitis, Zoster, this is not meant to be an all-inclusive list. EKG interpreted by me (3pts min.). @ -See above X-rays interpreted by me (1pt min.). @ -X-ray shows no acute processes CT interpreted by me (1pt min.). @ -None done U/S interpreted by me (1pt. min.). @ -None done What testing was considered but not performed or refused? (CT, X-rays, U/S, labs)? Why? @ -None What meds were considered but not given or refused? Why? @ -None Was smoking cessation discussed for >3mins.? @ -No Were there social determinants of health that impacted care today? How? (Homelessness, low income, unemployed, alcoholism, drug addiction, transportation, low edu. Level, literacy, decrease access to med. care, assisted, rehab)? @ -No Was there de-escalation of care discussed even if they declined (Discuss DNR or withdrawal of care, Hospice)? DNR status @ -No What co-morbidities impacted this encounter? (DM, HTN, Smoking, COPD, CAD, Cancer, CVA, ARF, Chemo, Hep., AIDS, mental health diagnosis, sleep apnea, morbid obesity)? @ -None Was patient admitted / discharged? Hospital course, mention meds given and route, prescriptions, significant lab abnormalities, going to OR and other pertinent info. @ -59-year-old male sent in by primary care physician's office for chest pain shortness of breath. Vital signs upon arrival shows tachycardia 125. At there several minutes of rest patient's heart rate normalized to 100. Laboratory evaluation obtained. Labs are within acceptable limits. Disposition options were discussed. Patient is agreeable for observation admission consultation to cardiology. Case discussed with primary care doctor who is agreeable Did you discuss the management of the patient with other professionals (professionals i.e. , PA, COMMISSIONED SECURITY OFFICER, lab, RT, psych nurse, social work coordinator, entertainment director, teacher, chief lending officer, special education case manager)? Give summary @ -See above Was critical care preformed (if so, how long)? @ -No Undiagnosed new problem with uncertain prognosis? @ -No Drug Therapy requiring intensive monitoring for toxicity (Heparin, Nitro, Insulin, Cardizem)? @ -No Were any procedures done? @ -No Diagnosis/symptom? Acute, or Chronic, or Acute on Chronic? Uncomplicated (without systemic symptoms) or Complicated (systemic symptoms)? @ -Chest pain Side effects of treatment? @ -No Exacerbation, Progression, or Severe Exacerbation? @ -No Poses a threat to life or bodily function? How? (Chest pain, USA, MS, pneumonia, PE, COPD, DKA, ARF, appy, cholecystitis, CVA, Diverticulitis, Homicidal, Suicidal, threat to staff... and all critical care pts) @ -yes - Lab Data Result diagrams: 05/01/24 18:12 05/01/24 18:12 Lab Results 05/01/24 05/01/24 05/01/24 Range/Units 18:12 18:12 18:12 WBC 11.6 H (3.8-10.6) k/uL RBC 4.70 (4.30-5.90) m/uL Hgb 14.4 (13.0-17.5) gm/dL Hct 42.3 (39.0-53.0) % MCV 89.8 (80.0-100.0) fL MCH 30.5 (25.0-35.0) pg MCHC 34.0 (31.0-37.0) g/dL RDW 11.7 (11.5-15.5) % Plt Count 295 (150-450) k/uL MPV 7.6 Neutrophils % 67 % Lymphocytes % 21 % Monocytes % 7 % Eosinophils % 2 % Basophils % 0 % Neutrophils # 7.8 H (1.3-7.7) k/uL Lymphocytes # 2.4 (1.0-4.8) k/uL Monocytes # 0.9 (0-1.0) k/uL Eosinophils # 0.2 (0-0.7) k/uL Basophils # 0.0 (0-0.2) k/uL PT 10.1 (10.0-12.5) sec INR 0.9 (<1.2) APTT 22.8 (22.0-30.0) sec D-Dimer 0.38 (<0.60) mg/L FEU Sodium 138 (137-145) mmol/L Potassium 3.8 (3.5-5.1) mmol/L Chloride 109 H (98-107) mmol/L Carbon Dioxide 21 L (22-30) mmol/L Anion Gap 8 mmol/L BUN 21 H (9-20) mg/dL Creatinine 0.88 (0.66-1.25) mg/dL Est GFR (CKD-EPI)AfAm >90 (>60 ml/min/1.73 sqM) Est GFR (CKD-EPI)NonAf >90 (>60 ml/min/1.73 sqM) Glucose 178 H (74-99) mg/dL Calcium 9.5 (8.4-10.2) mg/dL Magnesium 1.8 (1.6-2.3) mg/dL Total Bilirubin 0.8 (0.2-1.3) mg/dL AST 26 (17-59) U/L ALT 32 (4-49) U/L Alkaline Phosphatase 154 H (38-126) U/L Troponin I (0.000-0.034) ng/mL NT-Pro-B Natriuret Pep 62 pg/mL Total Protein 7.4 (6.3-8.2) g/dL Albumin 4.6 (3.5-5.0) g/dL TSH 2.220 (0.465-4.680) mIU/L 05/01/ Range/Units 18:12 WBC (3.8-10.6) k/uL RBC (4.30-5.90) m/uL Hgb (13.0-17.5) gm/dL Hct (39.0-53.0) % MCV (80.0-100.0) fL MCH (25.0-35.0) pg MCHC (31.0-37.0) g/dL RDW (11.5-15.5) % Plt Count (150-450) k/uL MPV Neutrophils % % Lymphocytes % % Monocytes % % Eosinophils % % Basophils % % Neutrophils # (1.3-7.7) k/uL Lymphocytes # (1.0-4.8) k/uL Monocytes # (0-1.0) k/uL Eosinophils # (0-0.7) k/uL Basophils # (0-0.2) k/uL PT (10.0-12.5) sec INR (<1.2) APTT (22.0-30.0) sec D-Dimer (<0.60) mg/L FEU Sodium (137-145) mmol/L Potassium (3.5-5.1) mmol/L Chloride (98-107) mmol/L Carbon Dioxide (22-30) mmol/L Anion Gap mmol/L BUN (9-20) mg/dL Creatinine (0.66-1.25) mg/dL Est GFR (CKD-EPI)AfAm (>60 ml/min/1.73 sqM) Est GFR (CKD-EPI)NonAf (>60 ml/min/1.73 sqM) Glucose (74-99) mg/dL Calcium (8.4-10.2) mg/dL Magnesium (1.6-2.3) mg/dL Total Bilirubin (0.2-1.3) mg/dL AST (17-59) U/L ALT (4-49) U/L Alkaline Phosphatase (38-126) U/L Troponin I <0.012 (0.000-0.034) ng/mL NT-Pro-B Natriuret Pep pg/mL Total Protein (6.3-8.2) g/dL Albumin (3.5-5.0) g/dL TSH (0.465-4.680) mIU/L Disposition Clinical Impression: Chest pain Disposition: ADMITTED IP TO THIS HOSP Condition: Fair Referrals: Dilshad Keene MD [Primary Care Provider] - 1-2 days Decision Time: 20:46
[2024-05-01 18:27] LABS: Basophils % (A) 0 %; Eosinophils # (A) 0.2 k/uL (0-0.7); Eosinophils % (A) 2 %; HCT 42.3 % (39.0-53.0); HGB 14.4 gm/dL (13.0-17.5); Lymphocytes # (A) 2.4 k/uL (1.0-4.8); Lymphocytes % (A) 21 %; MCH 30.5 pg (25.0-35.0); MCV 89.8 fL (80.0-100.0); Mean Platelet Volume 7.6; Monocytes # (A) 0.9 k/uL (0-1.0); Monocytes % (A) 7 %; Neutrophils # (A) 7.8 k/uL (1.3-7.7); Neutrophils % (A) 67 %; Platelet Count 295 k/uL (150-450); RDW 11.7 % (11.5-15.5); WBC 11.6 k/uL (3.8-10.6)
[2024-05-01 18:32] LABS: ALT 32 U/L (4-49); AST 26 U/L (17-59); African American GFR (CKD) >90 (>60 ml/min/1.73 sqM); Albumin 4.6 g/dL (3.5-5.0); Alkaline Phosphatase 154 U/L (38-126); Anion Gap 8 mmol/L; Blood Urea Nitrogen 21 mg/dL (9-20); Calcium 9.5 mg/dL (8.4-10.2); Carbon Dioxide 21 mmol/L (22-30); Chloride 109 mmol/L (98-107); Glucose 178 mg/dL (74-99); Magnesium 1.8 mg/dL (1.6-2.3); Non-African American GFR(CKD) >90 (>60 ml/min/1.73 sqM); Potassium 3.8 mmol/L (3.5-5.1); Sodium 138 mmol/L (137-145); Total Bilirubin 0.8 mg/dL (0.2-1.3); Total Protein 7.4 g/dL (6.3-8.2)
[2024-05-01 18:40] LABS: NT-Pro-B-Type Natriuretic Pept 62 pg/mL
[2024-05-01 18:43] LABS: INR 0.9 (<1.2); Partial Thromboplastin Time 22.8 sec (22.0-30.0); Prothrombin Time 10.1 sec (10.0-12.5)
--- NOTE | 2024-05-01 19:20 | XR ---
EXAMINATION TYPE: XR chest 2V DATE OF EXAM: 05/01/2024 6:40 PM COMPARISON: Chest radiographs from 01/01/2022 CLINICAL INDICATION: Male, 59 years old with history of tachycardia, dyspnea; PH[facility] TECHNIQUE: XR chest 2V Frontal and lateral views of the chest. FINDINGS: Lungs/Pleura: There is no evidence of pleural effusion, focal consolidation, or pneumothorax. Pulmonary vascularity: Unremarkable. Heart/mediastinum: Cardiomediastinal silhouette is unremarkable. Musculoskeletal: No acute osseous pathology. IMPRESSION: No acute cardiopulmonary disease/process. [facility] Hayes, , 05/01/2024 7:17 PM
[2024-05-01] MEDS ORDERED: NITROGLYCERIN SL TABS 0.4 MG TAB SUBLINGUAL PRN (20:39)
[2024-05-01] MEDS: ASPIRIN 81 MG PO STA (20:57)
[2024-05-02 01:43] VITALS: TEMP 97.8
[2024-05-02 06:02] LABS: Glucose,Whole Blood 174 mg/dL (70-110)
[2024-05-02 07:56] VITALS: BP 126/71; PULSE 72; RESP 16
[2024-05-02 08:53] LABS: Chol/HDL Ratio 6.19 Ratio; LDL Cholesterol,Calculated 173.3 mg/dL (0.0-131.0)
[2024-05-02] MEDS ORDERED: DEXTROSE 50% SYRINGE 50 ML IVP PRN ×2 (08:56)
[2024-05-02] MEDS: ASPIRIN 325 MG TAB PO SCH (09:42)
[2024-05-02] MEDS: TOPIRAMATE 25 MG TAB PO SCH (09:42)
[2024-05-02] MEDS: INSULIN ASPART (NovoLOG) 100 UNIT/ML VIAL SQ SCH (09:42)
[2024-05-02] MEDS: amLODIPine 10 MG TAB PO SCH (09:42)
[2024-05-02] MEDS: SPIRONOLACTONE 25 MG TAB PO SCH (09:42)
[2024-05-02] MEDS: PANTOPRAZOLE 40 MG TABLET PO SCH (09:45)
--- NOTE | 2024-05-02 11:10 | CA ---
Stress Echo Report Tushar Thacker Age: 59 Gender: M : 1965 Exam Date: 05/02/2024 11:25 Exam Location: [facility] Ht (in): Wt (lb): Ordering Physician: Cristina Barnes Referring Physician: [id number] García Tank Builder Helper: Janett Calabrese RDCS Technologist Procedure CPT: Indication: Chest Pain ICD-9 Codes: Rhythm: Patient History: Chest pain, Palpitations and hypertension Cardiac Medications: Medications in past 24 hours: Contrast: Definity Stress Results Protocol: Raghavendra Total dose(mL): 2 Exercise Duration (min:sec): 7:[address] Depression (mm): Angina Score: Baltazar Score: METS: 8.1 Resting HR: 66 Resting BP: 139 / 84 Peak HR: 155 Peak BP: 173 / 83 Max Predicted HR: 163 95 % Max Predicted HR Target HR: 139 Double Product: 11871 Stress Summary: BP Response: Reason for Termination: Reached target heart rate or work-load Cardiac Symptoms: No symptoms ECG Analysis Resting ECG: Stress ECG: Arrhythmia: Echo Analysis Resting Echo: Peak Echo Analysis: MEASUREMENTS (Male/Female) Normal Values CONCLUSIONS Good exercise tolerance Normal electrocardiogram and echocardiogram in response to exercise Dr. Moreno Castro MD (Electronically Signed) Final Date: 02 May 2024 11:09
[2024-05-02] MEDS: buPROPion SR 150 MG TABLET.ER PO SCH (11:11)
--- NOTE | 2024-05-02 11:16 | P.HPIM ---
History of Present Illness H&P Date: 05/02/24 Chief Complaint: Chest pain History and Physical and Discharge Summary: Tushar Thacker is a 56 yo M with PMH of T2DM, HTN, HLD, OA, obesity, obstructive sleep apnea-unable to tolerate CPAP and multiple other medical issues directed to the ER as per PCP. Patient initially presented at PCPs office with chest pain, shortness of breath, possible anginal, EKG suggestive of T wave inversions and patient referred to the emergency room. Family history of CAD-mother had CAD, brother at age 42 with a MS. Reports over the last month has had fluctuating heart palpitations, nonradiating bilateral chest pain accompanied by shortness of breath at rest and with exertion.denies nausea vomiting or diarrhea. Denies diaphoresis. Denies dizziness or focal deficits. Denies fever or chills. EKG reported sinus rhythm with nonspecific T wave abn ormalities, troponins negative x 3. Chest x-ray reported nonacute.Evaluated by cardiology, stress echo/echo/repeat EKG ordered. Afebrile, WBC 11.6, hemoglobin 14.4, platelets 295, INR 0.9, D-dimer within normal limits, 0.38. Electrolytes within normal limits, bicarb 21, BUN 21, creatinine 0.88. Glucose 178, alk phos 154, triglycerides 169, cholesterol 247, LDL 173, HDL 39.9 TSH within normal l imits ,2.220. Review of Systems ROS Statement: Those systems with pertinent positive or pertinent negative responses have been documented in the HPI. ROS Other: All systems not noted in ROS Statement are negative. Past Medical History Past Medical History: Asthma, Diabetes Mellitus, GERD/Reflux, Hyperlipidemia, Hypertension, Sleep Apnea/CPAP/BIPAP Additional Past Medical History / Comment(s): CHRONIC BRONCHITIS, C PAP MACHINE- NOT USING , HX OF KIDNEY STONE. History of Any Multi-Drug Resistant Organisms: None Reported Past Surgical History: Appendectomy, Heart Catheterization, Tonsillectomy Additional Past Surgical History / Comment(s): KIDNEY STONE REMOVED. FATTY LIPOMA REMOVED FROM LEFT WRIST AREA, R Hip replacement Past Anesthesia/Blood Transfusion Reactions: Postoperative Nausea & Vomiting (PONV) Past Psychological History: Depression Smoking Status: Never smoker Past Alcohol Use History: None Reported Past Drug Use History: None Reported - Past Family History Mother Family Medical History: Deep Vein Thrombosis (DVT), Myocardial Infarction (MS) Father History Unknown: Yes Brother(s) History Unknown: Yes Family Medical History: Myocardial Infarction (MS) Medications and Allergies Home Medications Medication Instructions Recorded Confirmed Type Montelukast [Singulair] 10 mg PO HS@1430 01/03/21 05/01/24 History Potassium Chloride ER [K-Dur 10] 10 meq PO DAILY 01/03/21 05/01/24 History Tamsulosin [Flomax] 0.4 mg PO BID@0700,1430 01/03/21 05/01/24 History buPROPion HCL [Wellbutrin SR] 150 mg PO DAILY 01/03/21 05/01/24 History metFORMIN HCL [Glucophage] 500 mg PO HS@1430 01/03/21 05/01/24 History tadalafiL [Cialis] 5 mg PO DIRECTED@1430 08/20/21 05/01/24 History Ergocalciferol [Vitamin D2 (1250 1,250 mcg PO SA 05/01/24 05/01/24 History Mcg = 31652 Iu)] Omeprazole [PriLOSEC] 20 mg PO DAILY 05/01/24 05/01/24 History Spironolactone [Aldactone] 50 mg PO DAILY 05/01/24 05/01/24 History Topiramate [Topamax] 50 mg PO DAILY 05/01/24 05/01/24 History amLODIPine [Norvasc] 10 mg PO DAILY 05/01/24 05/01/24 History carvediloL [Coreg] 12.5 mg PO BID@0700,1430 05/01/24 05/01/24 History Allergies Allergy/AdvReac Type Severity Reaction Status Date / Time No Known Allergies Allergy Verified 05/01/24 21:08 Physical Exam Vitals: Vital Signs Temp Pulse Pulse Resp BP BP Pulse Ox 05/02/24 07:00 97.8 F 72 16 126/71 96 05/02/24 01:42 97.8 F 84 18 111/68 94 L 05/01/24 22:00 98.1 F 99 20 134/87 97 05/01/24 21:42 97 19 123/78 96 05/01/24 20:58 93 15 134/93 95 05/01/24 19:38 100 16 113/83 95 05/01/24 18:31 111 H 20 143/93 95 05/01/24 17:43 98.2 F 125 H 24 139/92 97 Intake and Output 05/01/24 05/02/24 05/02/24 22:59 06:59 14:59 Intake Total 360 0 0 Balance 360 0 0 Intake: Oral 360 0 0 Other: # Voids 1 2 Weight 132.903 kg General: well developed, well nourished, NAD HEENT: NC/AT, mmm Neck: supple, no JVD CV: RRR, no murmur Lungs: normal effort, clear throughout Abd: soft, nontender, non distended,+bs Skin: warm and dry. Results CBC & Chem 7: 05/01/24 18:12 05/01/24 18:12 Labs: Abnormal Lab Results - Last 24 Hours (Table) 05/01/24 05/01/24 05/01/24 Range/Units 18:12 18:12 18:12 WBC 11.6 H (3.8-10.6) k/uL Neutrophils # 7.8 H (1.3-7.7) k/uL Chloride 109 H (98-107) mmol/L Carbon Dioxide 21 L (22-30) mmol/L BUN 21 H (9-20) mg/dL Glucose 178 H (74-99) mg/dL POC Glucose (mg/dL) (70-110) mg/dL Alkaline Phosphatase 154 H (38-126) U/L Triglycerides 169.00 H (0.00-149.00) mg/dL Cholesterol 247.00 H (0.00-200.00) mg/dL LDL Cholesterol, Calc 173.3 H (0.0-131.0) mg/dL HDL Cholesterol 39.90 L (40.00-60.00) mg/dL 05/02/24 Range/Units 06:01 WBC (3.8-10.6) k/uL Neutrophils # (1.3-7.7) k/uL Chloride (98-107) mmol/L Carbon Dioxide (22-30) mmol/L BUN (9-20) mg/dL Glucose (74-99) mg/dL POC Glucose (mg/dL) 174 H (70-110) mg/dL Alkaline Phosphatase (38-126) U/L Triglycerides (0.00-149.00) mg/dL Cholesterol (0.00-200.00) mg/dL LDL Cholesterol, Calc (0.0-131.0) mg/dL HDL Cholesterol (40.00-60.00) mg/dL Thrombosis Risk Factor Assmnt - Choose All That Apply Each Factor Represents 1 point: Age 41-60 years, Obesity (BMI >25) Each Risk Factor Represents 3 Points: Family history of DVT/PE Thrombosis Risk Factor Assessment Total Risk Factor Score: 5 Thrombosis Risk Factor Assessment Level: High Risk Assessment and Plan Assessment: Chest pain, troponins negative x 3, acute coronary syndrome ruled out, cardiology following T2DM, hemoglobin A1c 6.8 HTN Major depression History of allergic asthma Obstructive sleep apnea, unable to tolerate CPAP/mask Morbid obesity, BMI 43 Plan: Continue on current medication resume ,monitoring and symptomatic treatment.Patient will be discharged home today in a stable condition with guarded prognosis pending echo/stress echo/repeat EKG with final DC recommendations and clearance per cardiology. Discharge Medication List Montelukast [Singulair] 10 mg PO HS@1430 01/03/21 [History] Potassium Chloride ER [K-Dur 10] 10 meq PO DAILY 01/03/21 [History] Tamsulosin [Flomax] 0.4 mg PO BID@0700,1430 01/03/21 [History] buPROPion HCL [Wellbutrin SR] 150 mg PO DAILY 01/03/21 [History] metFORMIN HCL [Glucophage] 500 mg PO HS@1430 01/03/21 [History] tadalafiL [Cialis] 5 mg PO DIRECTED@1430 08/20/21 [History] Ergocalciferol [Vitamin D2 (1250 Mcg = 94522 Iu)] 1,250 mcg PO SA 05/01/24 [History] Omeprazole [PriLOSEC] 20 mg PO DAILY 05/01/24 [History] Spironolactone [Aldactone] 50 mg PO DAILY 05/01/24 [History] Topiramate [Topamax] 50 mg PO DAILY 05/01/24 [History] amLODIPine [Norvasc] 10 mg PO DAILY 05/01/24 [History] carvediloL [Coreg] 12.5 mg PO BID@0700,1430 05/01/24 [History] The impression and plan of care has been dictated as directed. Dr.: I performed a history and examination of this patient, discussed the same with the dictator. I agree with the dictator's note ,documented as a scribe. Any additional findings or plans will be noted.
--- NOTE | 2024-05-02 11:19 | CA ---
Transthoracic Echo Report Name: Tushar Thacker Age: 59 Gender: M : 1965 Exam Date: 05/02/2024 11:51 Exam Location: [facility] Ht (in): 69 Wt (lb): 293 Ordering Physician: Cristina Barnes Attending/Referring Phys: [id number], Molly Forest Engineer Janett Calabrese, RD Procedure CPT: Indications: LVF Cardiac Hx: Technical Quality: Fair Contrast 1: Total Dose (mL): Contrast 2: Total Dose (mL): MEASUREMENTS (Male / Female) Normal Values 2D ECHO LV Diastolic Diameter PLAX 5.0 cm 4.2 - 5.9 / 3.9 - 5.3 cm LV Systolic Diameter PLAX 3.2 cm IVS Diastolic Thickness 1.4 cm 0.6 - 1.0 / 0.6 - 0.9 cm LVPW Diastolic Thickness 1.4 cm 0.6 - 1.0 / 0.6 - 0.9 cm LV Relative Wall Thickness 0.6 RV Internal Dim ED PLAX 3.4 cm LA Systolic Diameter LX 4.4 cm 3.0 - 4.0 / 2.7 - 3.8 cm LV Diastolic Volume MOD BP 109.0 cm??? 67 - 155 / 56 - 104 cm??? LV Systolic Volume MOD BP 41.2 cm??? 22 - 58 / 19 - 49 cm??? LV Ejection Fraction MOD BP 62.2 % >= 55 % LV Cardiac Index MOD BP 2467.1 cm???/min???m??? LV Diastolic Volume MOD 4C 119.3 cm??? LV Systolic Volume MOD 4C 41.3 cm??? LV Ejection Fraction MOD 4C 65.4 % LV Cardiac Index MOD 4C 2841.0 cm???/min???m??? LV Diastolic Length 4C 8.7 cm LV Systolic Length 4C 7.2 cm LV Diastolic Volume MOD 2C 100.0 cm??? LV Systolic Volume MOD 2C 40.4 cm??? LV Ejection Fraction MOD 2C 59.5 % LV Cardiac Index MOD 2C 2167.7 cm???/min???m??? LV Diastolic Length 2C 8.7 cm LV Systolic Length 2C 7.4 cm LA Volume 57.8 cm??? 18 - 58 / 22 - 52 cm??? LA Volume Index 22.2 cm???/m??? 16 - 28 cm???/m??? M-MODE Aortic Root Diameter MM 4.3 cm LA Systolic Diameter MM 3.3 cm LA Ao Ratio MM 0.8 AV Cusp Separation MM 1.7 cm DOPPLER AI Peak Velocity 362.8 cm/s AI Peak Gradient 52.6 mmHg AI Pressure Half Time 739.4 ms MV Area PHT 2.3 cm??? Mitral E Point Velocity 72.5 cm/s Mitral A Point Velocity 83.4 cm/s Mitral E to A Ratio 0.9 MV Deceleration Time 332.7 ms TR Peak Velocity 257.1 cm/s TR Peak Gradient 26.4 mmHg Right Ventricular Systolic Press 31.2 mmHg FINDINGS Left Ventricle Left ventricular ejection fraction is estimated at 55-60 %. Moderately increased septal wall thickness. Normal left ventricular wall motion. Normal left ventricular systolic function with no obvious regional wall motion abnormalities. Right Ventricle Normal right ventricular size and function. Right ventricular systolic pressure within normal limits. Right Atrium Normal right atrial size. Left Atrium Mildly increased left atrial diameter. Mitral Valve Structurally normal mitral valve. Mild mitral regurgitation. No mitral stenosis. Aortic Valve Trileaflet aortic valve. No aortic stenosis. Mild aortic regurgitation. Tricuspid Valve Structurally normal tricuspid valve. Mild tricuspid regurgitation. No tricuspid stenosis. Pulmonic Valve Structurally normal pulmonic valve. Trace pulmonic regurgitation. No pulmonic stenosis. Pericardium No pericardial or pleural effusion. Aorta Mildly dilated aortic annulus, 4.3cm. CONCLUSIONS Normal biventricular systolic function Mild aortic regurgitation and mild mitral regurgitation Normal pulmonary artery systolic pressure No pericardial effusion Previewed by: Dr. Moreno Castro MD (Electronically Signed) Final Date: 02 May 2024 11:18
--- NOTE | 2024-05-02 11:41 | P.CRDCN ---
History of Present Illness Consult date: 05/02/24 Consult reason: chest pain History of present illness: This is is a 59-year-old male patient of Dr. Jarek Harmon with past medical history of allergic asthma hypertension, diabetes mellitus type 2. We have been asked to evaluate the patient for chest pain. Patient states that for the past month he has had episodes of his heart racing up to 128 bpm. He also has chest pain and shortness of breath this is been going on and off for the past month. Chest pain is across his chest, no radiation to his arms or jaw. He denies any syncopal episodes but he does have some lightheadedness. The symptoms did not seem to be related to activity. He denies having fever or chills. He feels that his diabetes is well-controlled. He denies history of smoking. He does have previous diagnosis of obstructive sleep apnea but was unable to tolerate CPAP. EKG: Sinus rhythm with nonspecific T wave changes. Chest x-ray: No acute process Laboratory studies: WBC 11.6, hemoglobin 14.4. D-dimer normal. Sodium 138, potassium 3.8, creatinine 0.88. Troponin negative x 3. Alkaline phosphatase 154. TSH 2.22. Home cardiac medications: Amlodipine 10 mg daily, Coreg 12.5 mg twice daily, potassium chloride 10 mEq daily, Aldactone 50 mg daily. Stress echocardiogram performed 05/02/2024: Good exercise tolerance. Normal electrocardiogram and echocardiogram response to exercise. Echocardiogram performed 05/02/2024: EF 55 to 60%. Mild aortic regurgitation and mild mitral regurgitation. Normal pulmonary artery systolic pressure. No pericardial effusion. Review Of Systems: At the time of my exam: CONSTITUTIONAL: Denies fever or chills. HEENT: Denies blurred vision, vision changes, or eye pain. Denies hemoptysis CARDIOVASCULAR: Denies chest pain. Denies orthopnea. Denies PND. Denies palpitations RESPIRATORY: Denies shortness of breath. GASTROINTESTINAL: Denies abdominal pain. Denies nausea or vomiting. HEMATOLOGIC: Denies bleeding disorders. GENITOURINARY: Denies any blood in urine. SKIN: Denies puritis. Denies rash. Physical examination: Gen: This is a 59-year-old morbidly obese male in no acute distress VS: reviewed HEENT: Head is atraumatic, normocephalic. Pupils equal, round. Sclerae is anicteric. NECK: Supple. No JVD. LUNGS: Clear to auscultation. No wheezes or rhonchi. No intercostal retractions. HEART: Regular rate and rhythm. No murmur. ABDOMEN: Soft No tenderness. EXTREMITIES: No pedal edema. No calf tenderness. NEUROLOGICAL: Patient is awake, alert and oriented x3. Assessment: Atypical chest pain, acute coronary syndrome ruled out History of allergic asthma Hypertension Diabetes mellitus type 2 Obstructive sleep apnea Plan: Continue patient's home cardiac medications Patient is cleared for discharge and may follow-up in the office with Dr. Guerra consider event monitor. Thank you kindly for this consultation. Nurse practitioner note has been reviewed, I agree with documented findings and plan of care. Patient was seen and examined. Past Medical History Past Medical History: Asthma, Diabetes Mellitus, GERD/Reflux, Hyperlipidemia, Hypertension, Sleep Apnea/CPAP/BIPAP Additional Past Medical History / Comment(s): CHRONIC BRONCHITIS, C PAP MACHINE- NOT USING , HX OF KIDNEY STONE. History of Any Multi-Drug Resistant Organisms: None Reported Past Surgical History: Appendectomy, Heart Catheterization, Tonsillectomy Additional Past Surgical History / Comment(s): KIDNEY STONE REMOVED. FATTY LIPOMA REMOVED FROM LEFT WRIST AREA, R Hip replacement Past Anesthesia/Blood Transfusion Reactions: Postoperative Nausea & Vomiting (PONV) Past Psychological History: Depression Smoking Status: Never smoker Past Alcohol Use History: None Reported Past Drug Use History: None Reported - Past Family History Mother Family Medical History: Deep Vein Thrombosis (DVT), Myocardial Infarction ([place]) Father History Unknown: Yes Brother(s) History Unknown: Yes Family Medical History: Myocardial Infarction ([place]) Medications and Allergies Home Medications Medication Instructions Recorded Confirmed Type Montelukast [Singulair] 10 mg PO HS@1430 01/03/21 05/01/24 History Potassium Chloride ER [K-Dur 10] 10 meq PO DAILY 01/03/21 05/01/24 History Tamsulosin [Flomax] 0.4 mg PO BID@0700,1430 01/03/21 05/01/24 History buPROPion HCL [Wellbutrin SR] 150 mg PO DAILY 01/03/21 05/01/24 History metFORMIN HCL [Glucophage] 500 mg PO HS@1430 01/03/21 05/01/24 History tadalafiL [Cialis] 5 mg PO DIRECTED@1430 08/20/21 05/01/24 History Ergocalciferol [Vitamin D2 (1250 1,250 mcg PO SA 05/01/24 05/01/24 History Mcg = [id number] Iu)] Omeprazole [PriLOSEC] 20 mg PO DAILY 05/01/24 05/01/24 History Spironolactone [Aldactone] 50 mg PO DAILY 05/01/24 05/01/24 History Topiramate [Topamax] 50 mg PO DAILY 05/01/24 05/01/24 History amLODIPine [Norvasc] 10 mg PO DAILY 05/01/24 05/01/24 History carvediloL [Coreg] 12.5 mg PO BID@0700,1430 05/01/24 05/01/24 History Allergies Allergy/AdvReac Type Severity Reaction Status Date / Time No Known Allergies Allergy Verified 05/01/24 21:08 Physical Exam Vitals: Vital Signs Temp Pulse Pulse Resp BP BP Pulse Ox 05/02/24 07:00 97.8 F 72 16 126/71 96 05/02/24 01:42 97.8 F 84 18 111/68 94 L 05/01/24 22:00 98.1 F 99 20 134/87 97 05/01/24 21:42 97 19 123/78 96 05/01/24 20:58 93 15 134/93 95 05/01/24 19:38 100 16 113/83 95 05/01/24 18:31 111 H 20 143/93 95 05/01/24 17:43 98.2 F 125 H 24 139/92 97 Intake and Output 05/01/24 05/02/24 05/02/24 22:59 06:59 14:59 Intake Total 360 0 0 Balance 360 0 0 Intake: Oral 360 0 0 Other: # Voids 1 2 Weight 132.903 kg Results 05/01/24 18:12 05/01/24 18:12 Cardiac Enzymes 05/01/24 05/01/24 05/01/24 Range/Units 18:12 18:12 20:53 AST 26 (17-59) U/L Troponin I <0.012 <0.012 (0.000-0.034) ng/mL 05/02/24 Range/Units 00:03 AST (17-59) U/L Troponin I <0.012 (0.000-0.034) ng/mL Coagulation 05/01/24 Range/Units 18:12 PT 10.1 (10.0-12.5) sec APTT 22.8 (22.0-30.0) sec Lipids 05/01/24 Range/Units 18:12 Triglycerides 169.00 H (0.00-149.00) mg/dL Cholesterol 247.00 H (0.00-200.00) mg/dL HDL Cholesterol 39.90 L (40.00-60.00) mg/dL Cholesterol/HDL Ratio 6.19 Ratio CBC 05/01/24 Range/Units 18:12 WBC 11.6 H (3.8-10.6) k/uL RBC 4.70 (4.30-5.90) m/uL Hgb 14.4 (13.0-17.5) gm/dL Hct 42.3 (39.0-53.0) % Plt Count 295 (150-450) k/uL Comprehensive Metabolic Panel 05/01/24 Range/Units 18:12 Sodium 138 (137-145) mmol/L Potassium 3.8 (3.5-5.1) mmol/L Chloride 109 H (98-107) mmol/L Carbon Dioxide 21 L (22-30) mmol/L BUN 21 H (9-20) mg/dL Creatinine 0.88 (0.66-1.25) mg/dL Glucose 178 H (74-99) mg/dL Calcium 9.5 (8.4-10.2) mg/dL AST 26 (17-59) U/L ALT 32 (4-49) U/L Alkaline Phosphatase 154 H (38-126) U/L Total Protein 7.4 (6.3-8.2) g/dL Albumin 4.6 (3.5-5.0) g/dL Current Medications Generic Name Dose Route Start Last Admin Trade Name Freq PRN Reason Stop Dose Admin Amlodipine Besylate 10 mg 05/02/24 09:00 05/02/24 09:42 Amlodipine 10 Mg Tab PO 10 mg DAILY FREDY Administration Aspirin 325 mg 05/02/24 09:00 05/02/24 09:42 Aspirin 325 Mg Tab PO 325 mg DAILY FREDY Administration Bupropion HCl 150 mg 05/02/24 09:00 05/02/24 11:11 Bupropion Sr 150 Mg Tablet.Er PO 150 mg DAILY FREDY Administration Dextrose/Water 25 ml 05/02/24 08:56 Dextrose 50% Syringe 50 Ml IVP PER PROTOCOL PRN Hypoglycemia Protocol Dextrose/Water 50 ml 05/02/24 08:56 Dextrose 50% Syringe 50 Ml IVP PER PROTOCOL PRN Hypoglycemia Protocol Insulin Aspart 0 unit 05/02/24 09:00 05/02/24 09:47 Insulin Aspart (Novolog) 100 Unit/Ml Vial SQ Not Given Q6H FREDY Protocol Montelukast Sodium 10 mg 05/02/24 14:30 Montelukast 10 Mg Tab PO HS@1430 FREDY Nitroglycerin 0.4 mg 05/01/24 20:39 Nitroglycerin Sl Tabs 0.4 Mg Tab SUBLINGUAL Q5M PRN Chest Pain Pantoprazole Sodium 40 mg 05/02/24 09:00 05/02/24 09:45 Pantoprazole 40 Mg Tablet PO 40 mg [id number] FREDY Administration Spironolactone 50 mg 05/02/24 09:00 05/02/24 09:42 Spironolactone 25 Mg Tab PO 50 mg DAILY FREDY Administration Topiramate 50 mg 05/02/24 09:00 05/02/24 09:42 Topiramate 25 Mg Tab PO 50 mg DAILY FREDY Administration Intake and Output 05/01/24 05/02/24 05/02/24 22:59 06:59 14:59 Intake Total 360 0 0 Balance 360 0 0 Intake: Oral 360 0 0 Other: # Voids 1 2 Weight 132.903 kg 05/01/24 18:12 05/01/24 18:12
[2024-05-02] MEDS ORDERED: MONTELUKAST 10 MG TAB PO SCH (14:30)
== END 2024-05-02 12:23 | disposition home or self-care (01) ==
LOC: EC 17:41 → 6NMEDSUR 20:39
PROVIDERS: ADMIT Family Medicine; ATTEND Family Medicine
DX: I20.9 Angina pectoris, unspecified (principal); E11.9 Type 2 diabetes mellitus without complications; R00.0 Tachycardia, unspecified; R06.00 Dyspnea, unspecified; U09.9 Post COVID-19 condition, unspecified; I08.0 Rheumatic disorders of both mitral and aortic valves; I10 Essential (primary) hypertension; E78.5 Hyperlipidemia, unspecified; J44.89 Other specified chronic obstructive pulmonary disease; G47.33 Obstructive sleep apnea (adult) (pediatric); E66.01 Morbid (severe) obesity due to excess calories; Z68.41 Body mass index [BMI] 40.0-44.9, adult; M19.90 Unspecified osteoarthritis, unspecified site; F32.9 Major depressive disorder, single episode, unspecified; Z79.84 Long term (current) use of oral hypoglycemic drugs; Z79.899 Other long term (current) drug therapy; Z79.82 Long term (current) use of aspirin; Z82.49 Family history of ischemic heart disease and other diseases of the circulatory system
CPT/HCPCS: 99285; 36415; 93005; 93306; 93351; 85379; 83880; 80061; 80053; 83735; 84443; 84484 ×2; 85025; 85610; 85730; 71046; G0378 ×2; S0106; Q9957

== ENCOUNTER → 2024-05-29 | Outpatient (CLI) | payer OTHER ==
[2024-05-29 16:44] LABS: African American GFR (CKD) >90 (>60 ml/min/1.73 sqM); Blood Urea Nitrogen 20 mg/dL (9-20); Non-African American GFR(CKD) 78 (>60 ml/min/1.73 sqM)
--- NOTE | 2024-05-30 08:20 | CT ---
EXAMINATION TYPE: CT chest w con DATE OF EXAM: 05/29/2024 5:18 PM COMPARISON: None. CLINICAL INDICATION: Male, 59 years old with history of R07.9 CHEST PAIN, UNSPECIFIED, irregular hear t rate TECHNIQUE: Axial images were obtained at 5 mm thick sections. Reconstructed images are reviewed on t computer in the coronal plane. Contrast used:80cc mL of Isovue 300 with IV Contrast, (none if empty) Oral contrast used: (none if empty) CT DLP: 650.6 mGycm, Automated exposure control for dose reduction was used. FINDINGS: Portion of the thyroid visualized is normal. No suspicious lung nodules or focal infiltrates are present. No enlarged mediastinal or hilar adenopathy is evident. The ascending aorta diameter at the level o f the main pulmonary artery is 4.3 cm. The main pulmonary artery diameter at the bifurcation is 3.2 cm. Coronary artery calcifications present. Limited CT sections are obtained through the upper abdomen. There is a 4.6 cm cyst on the posterior l ateral right mid kidney IMPRESSION: 1. No acute pulmonary process. 2. Ascending thoracic aortic aneurysm 4.3 cm [facility], , 05/30/2024 8:18 AM
== END | disposition home or self-care (01) ==
LOC: RADCTMAIN 16:01
PROVIDERS: ATTEND Family Medicine
DX: I71.21 Aneurysm of the ascending aorta, without rupture (principal)
CPT/HCPCS: 82565; 84520; 71260; 36415; Q9967